=== PATIENT | female | born 1945 | race Caucasian/White ===

== ENCOUNTER 2018-08-29 09:47 | Inpatient (IN) | payer OTHER ==
[2018-08-29 11:49] LABS: BASO % 0.3 % (0-2.0); EOS % 0.7 % (0-4.5); HEMOGLOBIN 13.2 GM/dL (10.7-15.3); LYMPH % 28.7 % (8-40); MCH 35.6 pg (25.7-33.7); MCHC 35.7 g/dl (32.0-36.0); MEAN CELL VOLUME 99.8 fl (80-96); MONO % 5.3 % (3.8-10.2); PLATELET COUNT 142 K/MM3 (134-434); WHITE BLOOD COUNT 7.7 K/mm3 (4.0-10.0)
--- NOTE | 2018-08-29 12:10 | PDOC ---
History of Present Illness - General Chief Complaint: Headache Stated Complaint: HEADACHE Time Seen by Provider: 08/29/18 11:15 History Source: Patient Exam Limitations: No Limitations - History of Present Illness Initial Comments: 08/29/18 12:37 73 yo F with a past medical hx of HTN, hypothyroidism, HLD, vertigo, and preliminary diagnosis of parkinson's disease presents to the emergency department with her son for increased severity of AMS which has been ongoing for 2 weeks. Per the son, she has had worsening of mental status since last week when she was placed off her medication pimavanserin. She states she has been seeing family members walking through her house despite them not physically being there. Per the son, she has become more paranoid and agitated. She has been getting names mixed with the siblings. She has been seen by Dr. Conde for the last 3 weeks for Parkinsons work up due to unsteady gait, increased tremors, and hallucinations. Denies recent falls or sick contacts. Endorses urinary urgency. Denies the following: headaches, fever/chills, FND, nausea/vomiting, chest pain, SOB, abdominal pain, dysuria, hematuria, diarrhea, hematochezia, and melena. Pmhx: Refer to above Shx: hysterectomy 1970s Meds: metoprolol, levothyroxine, nifedipine, depakote, losartan, pimavanserin, Allergies: NKDA Social: Denies tobacco, alcohol, and substance abuse. Past History - Past Medical History Allergies/Adverse Reactions: Allergies Allergy/AdvReac Type Severity Reaction Status Date / Time No Known Allergies Allergy Verified 08/29/18 10:05 Home Medications: Ambulatory Orders Atorvastatin Ca [Lipitor] 40 mg PO HS 08/29/18 Diazepam [Valium] 2 mg PO DAILY 08/29/18 Divalproex [Depakote -] 500 mg PO HS 08/29/18 Etodolac [Etodolac ER] 400 mg PO DAILY 08/29/18 Levothyroxine Sodium [Levoxyl] 88 mcg PO DAILY 08/29/18 Losartan Potassium 25 mg PO DAILY 08/29/18 Metoprolol Succinate 100 mg PO DAILY 08/29/18 Nifedipine ER [Procardia Xl -] 30 mg PO DAILY 08/29/18 Pimavanserin Tartrate [Nuplazid] 34 mg PO DAILY 08/29/18 COPD: No HTN: Yes Hypercholesterolemia: Yes Psychiatric Problems: Yes (DEPRESSION) Seizures: Yes Other medical history: PARKINSON - Immunization History Immunization Up to Date: Yes - Suicide/Smoking/Psychosocial Hx Smoking History: Never smoked Have you smoked in the past 12 months: No Information on smoking cessation initiated: No Hx Alcohol Use: No Drug/Substance Use Hx: No Substance Use Type: None Review of Systems - Review of Systems Comments:: Refer to HPI *Physical Exam - Vital Signs Last Vital Signs Temp Pulse Resp BP Pulse Ox 98.0 F 67 16 155/59 L 97 08/29/18 09:58 08/29/18 09:58 08/29/18 09:58 08/29/18 09:58 08/29/18 09:58 - Physical Exam General Appearance: Yes: Nourished, Appropriately Dressed. No: Apparent Distress, Disheveled, Alcohol on Breath, Intoxicated HEENT: positive: EOMI, ASHLEY, Normal ENT Inspection, Normal Voice, Symmetrical, TMs Normal, Pharynx Normal, Hearing Grossly Normal. negative: Scleral Icterus ( R), Scleral Icterus (L), Muffled/Hoarse voice, Pharyngeal Erythema, Tonsillar Erythema, Excessive drooling Neck: positive: Trachea midline. negative: Tender, Decreased range of motion, Lymphadenopathy (R), Lymphadenopathy (L), Tender lateral, Tender midline Respiratory/Chest: positive: Lungs Clear, Normal Breath Sounds. negative: Chest Tender, Respiratory Distress, Accessory Muscle Use Cardiovascular: positive: Regular Rhythm, Regular Rate, S1, S2. negative: Systolic Murmur Gastrointestinal/Abdominal: positive: Normal Bowel Sounds, Flat, Soft. negative : Tender, Organomegaly, Pulsatile Mass, Protuberent, Distended Lymphatic: negative: Adenopathy Musculoskeletal: positive: Normal Inspection. negative: CVA Tenderness, Decreased Range of Motion, Vertebral Tenderness Extremity: positive: Normal Capillary Refill, Normal Inspection, Normal Range of Motion. negative: Tender, Swelling, Calf Tenderness Integumentary: positive: Normal Color, Dry, Warm. negative: Erythema, Petechiae , Swelling Neurologic: positive: security alarm technician II-XII NML intact, Alert, Normal Response, Motor Strength 5/5, Finger to Nose. negative: Fully Oriented (oriented to self and place. incorrect date), Normal Mood/Affect, Facial Droop, Sensory Deficit Heart Score/ECG Review - ECG Intrepretation Comment:: 08/30/18 02:04 ventricular rate is 57 bpm, pr is 190 ms, QRS duration is 86 ms, QTc is 414 ms. sinus bradycardia without st elevations or depressions noted. ED Treatment Course - LABORATORY CBC & Chemistry Diagram: 08/29/18 11:25 08/29/18 11:25 - ADDITIONAL ORDERS Additional order review: Laboratory Results 08/29/18 11:21 Ammonia 23.30 08/29/18 11:25 RBC 3.70 MCV 99.8 H MCHC 35.7 RDW 13.0 MPV 10.0 Neutrophils % 65.0 Lymphocytes % 28.7 Monocytes % 5.3 Eosinophils % 0.7 Basophils % 0.3 Medical Decision Making - Medical Decision Making 73 yo F with a past medical hx of HTN, hypothyroidism, HLD, vertigo, and preliminary diagnosis of parkinson's disease presents to the emergency department with her son for increased severity of AMS which has been ongoing for 2 weeks. Initial vitals: Initial Vital Signs Temp Pulse Resp BP Pulse Ox 98.0 F 67 16 155/59 L 97 08/29/18 09:58 08/29/18 09:58 08/29/18 09:58 08/29/18 09:58 08/29/18 09:58 Work up: ams in setting of worsening parkinsons? vs delirium (infectious vs metabolic vs intracranial pathology). will order cbc to rule out infectious etiology, cmp to rule out metabolic disturbance, troponins and ekg for cardiac hx and questionable ataxia via son (not observed on physical exam), UA and urine culture to assess infectious etiology. head ct to rule out intracranial processes and cxr to rule out infectious etiology (PNA). TSH was added due to hypothyroidism hx Laboratory Tests 08/29/18 08/29/18 08/29/18 11:21 11:25 11:25 WBC 7.7 RBC 3.70 Hgb 13.2 Hct 37.0 MCV 99.8 H MCH 35.6 H MCHC 35.7 RDW 13.0 Plt Count 142 MPV 10.0 Absolute Neuts (auto) 5.0 Neutrophils % 65.0 Lymphocytes % 28.7 Monocytes % 5.3 Eosinophils % 0.7 Basophils % 0.3 Nucleated RBC % 0 Sodium 141 Potassium 3.8 Chloride 106 Carbon Dioxide 28 Anion Gap 8 BUN 23 H Creatinine 0.7 Creat Clearance w eGFR > 60 Random Glucose 137 H Calcium 8.5 Total Bilirubin 0.4 AST 11 L ALT 16 Alkaline Phosphatase 58 Ammonia 23.30 Creatine Kinase 35 Troponin I < 0.02 Total Protein 6.4 Albumin 3.4 TSH 2.73 Urine Color Urine Appearance Urine pH Ur Specific [place] Urine Protein Urine Glucose (UA) Urine Ketones Urine Blood Urine Nitrite Urine Bilirubin Urine Urobilinogen Ur Leukocyte Esterase Urine WBC (Auto) Urine RBC (Auto) Ur Epithelial Cells Urine Mucus 08/29/18 11:50 WBC RBC Hgb Hct MCV MCH MCHC RDW Plt Count MPV Absolute Neuts (auto) Neutrophils % Lymphocytes % Monocytes % Eosinophils % Basophils % Nucleated RBC % Sodium Potassium Chloride Carbon Dioxide Anion Gap BUN Creatinine Creat Clearance w eGFR Random Glucose Calcium Total Bilirubin AST ALT Alkaline Phosphatase Ammonia Creatine Kinase Troponin I Total Protein Albumin TSH Urine Color Marjorie Urine Appearance Slcloudy Urine pH 5.0 Ur Specific [place] 1.018 Urine Protein Negative Urine Glucose (UA) Negative Urine Ketones Negative Urine Blood Negative Urine Nitrite Negative Urine Bilirubin Negative Urine Urobilinogen 2.0 H Ur Leukocyte Esterase 1+ H Urine WBC (Auto) 23 Urine RBC (Auto) 3 Ur Epithelial Cells Rare Urine Mucus Moderate Patient's labs show a positive leuk esterase consistent with a UTI. in addition , troponins were negative and the EKG did not show signs consistent to STEMI. the rest of the labs were within normal limits. the patient was reassessed after the labs. she continued to remain asymptomatic. I spoke to the son of the patient at length about housing arrangements for the patient. Per the son, they are unable to care for her in their current living arrangement. they feel she is unsafe to return to her home where she lives alone because they suspect she doesnt feed herself and gets confused. he expressed wishes for her to be placed in a temporary shelter until arrangements can be made. 08/29/18 14:[address] conde about patient's dispo. he states to treat the uti and have her follow up with his office sooner. Dr. Almodovar admitted the patient for placement workup and workup of AMS. she was given ceftriaxone in the department. Dispo: Admit *DC/Admit/Observation/Transfer Diagnosis at time of Disposition: Altered mental status Qualifiers: Altered mental status type: unspecified Qualified Code(s): R41.82 - Altered mental status, unspecified Urinary tract infection Qualifiers: Urinary tract infection type: site unspecified Hematuria presence: without hematuria Qualified Code(s): N39.0 - Urinary tract infection, site not specified - Referrals - Patient Instructions - Post Discharge Activity
[2018-08-29 12:21] LABS: ALBUMIN 3.4 g/dl (3.4-5.0); ALK PHOS 58 U/L (45-117); ANION GAP 8 MMOL/L (8-16); BILIRUBIN,TOTAL 0.4 mg/dL (0.2-1); BLOOD UREA NITROGEN 23 mg/dL (7-18); CALCIUM 8.5 mg/dL (8.5-10.1); CHLORIDE 106 mmol/L (98-107); CO2 28 mmol/L (21-32); CREATININE 0.7 mg/dL (0.55-1.3); GLUCOSE,RANDOM 137 mg/dL (74-106); POTASSIUM 3.8 mmol/L (3.5-5.1); SGOT/AST 11 U/L (15-37); SGPT/ALT 16 U/L (13-61); SODIUM 141 mmol/L (136-145); TOT PROT 6.4 g/dl (6.4-8.2)
[2018-08-29 12:24] LABS: URINE APPEARANCE SLCLOUDY; URINE BILIRUBIN NEGATIVE (<2.0 mg/dL); URINE COLOR AMBER; URINE GLUCOSE (UA) NEGATIVE (NEGATIVE); URINE KETONE NEGATIVE (NEGATIVE); URINE LEUK ESTERASE 1+ (NEGATIVE); URINE NITRITE NEGATIVE (NEGATIVE); URINE PROTEIN NEGATIVE (NEGATIVE)
[2018-08-29 12:28] LABS: EPI CELLS RARE /HPF (FEW); URINE MUCUS MODERATE
--- NOTE | 2018-08-29 14:36 | PDOC ---
Attending Attestation - Resident Resident Name: Sarthak Guzman - ED Attending Attestation I have performed the following: I have examined & evaluated the patient, The case was reviewed & discussed with the resident, I agree w/resident's findings & plan, Exceptions are as noted - HPI HPI: 08/29/18 14:27 The patient is a 73 year old female, with a past medical history of HTN, HLD, hypothyroidism, vertigo, and recent diagnosis of Parkinsons (recently came off of Nuplazid), who presents to the emergency department with altered mental status. As per patients son, the patient has been experiencing worsening hallucinations, paranoia, and insomnia. Patients son notes her symptoms have been ongoing for a few weeks and worsening over the past few days. Pt endorses urinary frequency but denies any recent fever, chills, nausea, vomiting , diarrhea, constipation, chest pain, or shortness of breath. Allergies: NKDA Past surgical history:Hysterectomy () Social history: Nonsmoker. Denies EtOH use and recreational drug use. Primary Care Physician: Dr. Almodovar - Physicial Exam PE: 08/29/18 14:36 "GENERAL: Awake, alert, in no acute distress. HEAD: No signs of trauma EYES: PERRLA, EOMI, sclera anicteric, conjunctiva clear ENT: Auricles normal inspection, hearing grossly normal, nares patent, oropharynx clear without exudates. Moist mucosa NECK: Nontender, no stepoffs, Normal ROM, supple, no lymphadenopathy, JVD, or masses LUNGS: Breath sounds equal, clear to auscultation bilaterally. No wheezes, and no crackles HEART: Regular rate and rhythm, normal S1 and S2, no murmurs, rubs or gallops ABDOMEN: Soft, nontender, normoactive bowel sounds. No guarding, no rebound. No masses EXTREMITIES: Normal range of motion, no edema. No clubbing or cyanosis. No cords, erythema, or tenderness NEUROLOGICAL: Cranial nerves II through XII intact. 5/5 strength and sensation in all extremities, Normal speech, normal gait, normal cerebellar function SKIN: Warm, Dry, normal turgor, no rashes or lesions noted. - Medical Decision Making 08/29/18 14:38 73 F with worsening hallucinations, confusion, agitation, and insomnia. Will evaluate for organic cause, such as infectious or metabolic process. Also consider intracranial pathology, though pt has normal neuro exam. - Labs - UA, CXR - CT head - Discuss with Dr. Conde
[2018-08-29] MEDS ORDERED: CEFTRIAXONE 1,000 MG in DEXTROSE 5%-WATER - 50 ML IVPB ONE (15:42)
[2018-08-29] MEDS ORDERED: CEFTRIAXONE 1 GM/50 ML BAG ONE (15:46)
[2018-08-29] MEDS ORDERED: DOCUSATE SODIUM 100 MG CAPSULE (FP) PO PRN (17:27)
[2018-08-29] MEDS: diazePAM 2 MG TABLET PO SCH (18:23)
[2018-08-29 21:22] VITALS: BMI 24.6
[2018-08-29] MEDS: ATORVASTATIN CA 40 MG TABLET (FP) PO SCH (21:48)
[2018-08-29] MEDS: DIVALPROEX SODIUM 500 MG TABLET E.C. PO SCH (23:11)
[2018-08-30] MEDS: LEVOTHYROXINE NA 88 MCG TABLET (FP) PO SCH (06:15)
[2018-08-30 07:00] LABS: HEMATOCRIT 38.9 % (32.4-45.2); MCH 33.8 pg (25.7-33.7); MCHC 33.5 g/dl (32.0-36.0); MEAN CELL VOLUME 101.1 fl (80-96); MEAN PLT VOLUME 9.8 fl (7.5-11.1); PLATELET COUNT 129 K/MM3 (134-434); RBC 3.84 M/mm3 (3.60-5.2); WHITE BLOOD COUNT 7.6 K/mm3 (4.0-10.0)
[2018-08-30 08:05] LABS: ALBUMIN 3.3 g/dl (3.4-5.0); ALK PHOS 58 U/L (45-117); ANION GAP 8 MMOL/L (8-16); BILIRUBIN,TOTAL 0.4 mg/dL (0.2-1); BLOOD UREA NITROGEN 28 mg/dL (7-18); CALCIUM 8.2 mg/dL (8.5-10.1); CHLORIDE 107 mmol/L (98-107); CO2 27 mmol/L (21-32); CREATININE 0.8 mg/dL (0.55-1.3); GLUCOSE,RANDOM 127 mg/dL (74-106); POTASSIUM 3.7 mmol/L (3.5-5.1); SGOT/AST 11 U/L (15-37); SGPT/ALT 18 U/L (13-61); SODIUM 142 mmol/L (136-145); TOT PROT 6.1 g/dl (6.4-8.2)
[2018-08-30] MEDS: NIFEdipine E.R. 30 MG TABLET (FP) PO SCH (09:40)
[2018-08-30] MEDS: LOSARTAN POTASSIUM 25 MG TABLET PO SCH (09:41)
[2018-08-30] MEDS: diazePAM 2 MG TABLET PO SCH (09:42)
[2018-08-30] MEDS ORDERED: PATIENT'S OWN MEDICATION (NON-FORMULARY) (Pimavanserin Tartrate [Nuplazid] 34 MG) PO SCH (10:00)
--- NOTE | 2018-08-30 12:36 | EKG ---
Test Reason : Blood Pressure : / mmHG Vent. Rate : 057 BPM Atrial Rate : 057 BPM P-R Int : 190 ms QRS Dur : 086 ms QT Int : 426 ms P-R-T Axes : 054 028 070 degrees QTc Int : 414 ms SINUS BRADYCARDIA OTHERWISE NORMAL ECG Confirmed by MD CINDY, ROBSON ([id number]) on 08/30/2018 12:35:53 PM Referred By: Confirmed By:ROBSON WHITE MD
--- NOTE | 2018-08-30 13:00 | PN ---
Progress Note (short form) - Note Progress Note: ID Consult dictated UTI ? Toxic metabolic encephalopathy Parkinsonism Await c/s Empiric ceftriaxone
[2018-08-30] MEDS ORDERED: cefTRIAXone SODIUM 1 GM VIAL ONE (14:14)
[2018-08-30] MEDS ORDERED: DEXTROSE 5%-WATER - 50 ML IVPB ONE (14:14)
[2018-08-30] MEDS: CEFTRIAXONE 1 GM in DEXTROSE 5%-WATER - 50 ML IVPB SCH (14:41)
--- NOTE | 2018-08-30 19:03 | CONS ---
DATE OF CONSULTATION: DATE OF DICTATION: 08/30/2018 INFECTIOUS DISEASE CONSULTATION HISTORY OF PRESENT ILLNESS: The patient is a 73-year-old female with a history of Parkinsonism evaluated for urinary tract infection. The patient was brought to the hospital by family after she was noted to have worsening mental status over the past 2 weeks. According to the notes, she had increased lethargy and confusion as well as agitation, paranoia, and visual hallucinations. In addition, she had a worsening unsteady gait. She was brought to the hospital where urinalysis showed pyuria, urine culture growing mixed organisms. She is awake and responsive. She appears calm. She does report urinary frequency and urgency. Denies dysuria or hematuria. No complaints of suprapubic or flank pain. PAST MEDICAL HISTORY: Positive for parkinsonism, hyperlipidemia, hypothyroidism, hypertension. PAST SURGICAL HISTORY: Status post hysterectomy. ALLERGIES: No known allergies. MEDICATION: Metoprolol, levothyroxine, nifedipine, Depakote, losartan. SOCIAL HISTORY: Lives at home with family members. Nonsmoker. Nondrinker. SYSTEMS REVIEW: Neurologic: Positive for parkinsonism. Cardiac: Negative for chest pain or palpitations. Respiratory: Negative for cough or sputum production. Gastrointestinal: Negative vomiting or diarrhea. Genitourinary: As per HPI. LABORATORY: White count 7.6, hematocrit 38.9, platelet count 129. Creatinine 0.8. Urinalysis 23 white cells. Chest x-ray negative. PHYSICAL EXAMINATION: General: On exam, she is awake, supine in bed, she appears weak. Vital signs: Temperature 98, blood pressure 129/59, pulse 62 regular, respirations 20 per minute. HEENT: Sclerae anicteric. Cardiovascular: Heart sounds S1, S2. Lungs: Clear bilaterally. Abdomen: Soft, no suprapubic or flank tenderness. Extremities: Positive for edema. IMPRESSION: 1. Urinary tract infection. 2. Possible toxic metabolic encephalopathy secondary to urinary tract infection. 3. Parkinsonism with exacerbation. Await cultures. Empiric antibiotic coverage with ceftriaxone. Case discussed with patient's son at the bedside. Will follow. Thank you for the kind referral. IRISH IRAHETA M.D. [id number]
--- NOTE | 2018-08-30 20:58 | HP ---
Admitting History and Physical - Admission History of Present Illness: 73 y/o female PMH Hypothyroid / HTN / HLD/ with progressive dementia. Brought to ER with behavioral changes / dificult to control. unable to obtain hx from patient / she is confused and anxious History Source: Family Member, Medical Record Limitations to Obtaining History: Dementia, Uncooperative - Past Medical History HOME CARE ASSOCIATE: Yes: Dementia ...: No - Smoking History Smoking history: Never smoked Have you smoked in the past 12 months: No If you are a former smoker, when did you quit?: 20 years ago - Alcohol/Substance Use Hx Alcohol Use: No - Social History Usual Living Arrangement: Yes: With Child ADL: Support Services History of Recent Travel: No Home Medications - Allergies Allergies/Adverse Reactions: Allergies Allergy/AdvReac Type Severity Reaction Status Date / Time codeine Allergy Verified 08/30/18 18:49 Penicillins Allergy Verified 08/30/18 18:49 - Home Medications Home Medications: Ambulatory Orders Atorvastatin Ca [Lipitor] 40 mg PO HS 08/29/18 Diazepam [Valium] 2 mg PO DAILY 08/29/18 Divalproex [Depakote -] 500 mg PO HS 08/29/18 Etodolac [Etodolac ER] 400 mg PO DAILY 08/29/18 Levothyroxine Sodium [Levoxyl] 88 mcg PO DAILY 08/29/18 Losartan Potassium 25 mg PO DAILY 08/29/18 Metoprolol Succinate 100 mg PO DAILY 08/29/18 Nifedipine ER [Procardia XL -] 30 mg PO DAILY 08/29/18 Pimavanserin Tartrate [Nuplazid] 34 mg PO DAILY 08/29/18 Cephalexin Monohydrate [Keflex -] 500 mg PO BID capsule 09/02/18 Divalproex [Depakote -] 500 mg PO HS tablet.ec 09/02/18 Docusate Sodium [Colace -] 100 mg PO Q12H PRN capsule 09/02/18 Melatonin 10 mg PO HS PRN tab 09/02/18 Quetiapine Fumarate [Seroquel -] 25 mg PO HS tablet 09/02/18 Review of Systems Unable to obtain ROS, reason: dementia Findings/Remarks: ROS per family patient with increase agitations / confusion poor impulse control / further decline in cognition in recent weeks - Review of Systems Constitutional: denies: Chills, Fever, Night Sweats HENT: denies: Difficult Swallowing, Mouth Swelling, Nasal Congestion Neck: denies: Decreased ROM, Lumps, Stiffness Cardiovascular: denies: Chest Pain, Palpitations, Shortness of Breath Respiratory: denies: Cough Gastrointestinal: denies: Abdominal Pain Musculoskeletal: denies: Back Pain, Joint Swelling Neurological: reports: Confusion (increased confusion), Pre-Existing Deficit, Unsteady Gait Psychiatric: reports: Anxiety, Paranoia Physical Examination Vital Signs: Vital Signs Temperature 98.0 F 08/30/18 16:53 Pulse Rate 61 08/30/18 16:53 Respiratory Rate 18 08/30/18 16:53 Blood Pressure 143/58 L 08/30/18 16:53 O2 Sat by Pulse Oximetry (%) 96 08/30/18 09:00 Constitutional: Yes: Well Nourished, No Distress, Anxious Eyes: Yes: Conjunctiva Clear, EOM Intact HENT: Yes: Atraumatic, Normocephalic Neck: Yes: Supple, Trachea Midline Cardiovascular: Yes: Regular Rate and Rhythm Respiratory: Yes: Regular, CTA Bilaterally Gastrointestinal: Yes: Normal Bowel Sounds, Soft ...Rectal Exam: Yes: Deferred Renal/: Yes: WNL Breast(s): Yes: WNL Musculoskeletal: Yes: WNL Extremities: Yes: WNL Edema: No Peripheral Pulses WNL: Yes Integumentary: Yes: WNL Neurological: Yes: Alert, Confusion, Pre-Existing Deficit, Unsteady Gait, Other (paranoid) Psychiatric: Yes: Alert, Agitated Labs: CBC, BMP 08/30/18 06:00 08/30/18 06:00 Problem List - Problems (1) Restlessness and agitation Code(s): R45.1 - RESTLESSNESS AND AGITATION (2) Altered mental status Code(s): R41.82 - ALTERED MENTAL STATUS, UNSPECIFIED Qualifiers: Altered mental status type: unspecified Qualified Code(s): R41.82 - Altered mental status, unspecified (3) Urinary tract infection Code(s): N39.0 - URINARY TRACT INFECTION, SITE NOT SPECIFIED Qualifiers: Urinary tract infection type: site unspecified Hematuria presence: without hematuria Qualified Code(s): N39.0 - Urinary tract infection, site not specified (4) HTN (hypertension) Code(s): I10 - ESSENTIAL (PRIMARY) HYPERTENSION (5) Hypothyroid Code(s): E03.9 - HYPOTHYROIDISM, UNSPECIFIED (6) HLD (hyperlipidemia) Code(s): E78.5 - HYPERLIPIDEMIA, UNSPECIFIED
[2018-08-30] MEDS: QUEtiapine FUMARATE 25 MG TABLET (FP) PO SCH (22:05)
[2018-08-30] MEDS: ATORVASTATIN CA 40 MG TABLET (FP) PO SCH (22:05)
[2018-08-30] MEDS: DIVALPROEX SODIUM 500 MG TABLET E.C. PO SCH (22:24)
--- NOTE | 2018-08-30 23:04 | CONSULT ---
Consult - text type - Consultation Consultation Note: NEUROLOGY CONSULTATION is greatly appreciated: Events reviewed and discussed with RN. This 73 yo RH div woman lives alone. PMH sig for Chol, HTN, Hypothyroidism s/p thyroidectomy. Maintained on: Atorvastatin; Diazepam 2 mg PO qd; Depakote 500 mg HS; Levothyroxine; Losartan; Metoprolol 100 mg; Nifedipine ER 30 mg. Chronic headaches c/w migraines and episodic vertigo. Seen once by me on 08/09/18 after 6 mos of Visual hallucinations (mostly of people in her bedroom at night), mild OMS and early Parkinsonian features. Started on Depakote for migraine prophylaxis and Nuplazid for Parkinson's disease psychosis. Family was tole it takes 4-6 weeks for this medicine to work. Now admitted for confusion. MRI of brain was done last week and CT today (both reviewed): which show moderate atrophy and microvascular changes. CYH=115; TSH=2.73 and urinary WBC=23 Tonight, RN's find patient to be confused but she denies recent headaches or visual hallucinations for at least 2 days. HUMAIRA: No head trauma. No bruits. Cor reg. NEURO: Awake, alert, cooperative. O x [facility]. Nove 2015, , 18. TRUMP. Poor reversals and recall (0 of 3 @ 3 mins). No frontal release finds. Speech sl hypophonic but fluent. Sl masked facies. Min Bradykinesia. Cogwheeling L>R. Normal strength and reflexes. No FTN dystaxia Normal vibration in feet. Sl. shuffling gait IMP: Mild-moderate B/L cerebral dysfunction Parkinsonism with PD-related Psychosis (Cannot exclude Lewy Body Dementia ). Hallucinations may be better if patient's history is reliable. Migraine headaches- improved on Depakote. Possible Toxic-metabolic Encephalopathy SUGGEST: Continue Depakote 500 mg qd and Nuplazid 34 mg q AM Check B12 levels Continue valium 2 mg q HS to avoid withdrawal of chronic benzodiazepine Rx Agree with quetiapine 25 mg PO TID, PRN agitation. Please Rx UTI. health services coordinator, please. Thank you very much, Song Conde MD
[2018-08-30] MEDS: MELATONIN 5 MG TABLETS PO PRN (23:28)
[2018-08-31] MEDS: LEVOTHYROXINE NA 88 MCG TABLET (FP) PO SCH (06:02)
[2018-08-31] MEDS ORDERED: PT OWN MED DRAWER 7, Y5N ONE ×2 (09:17→22:34)
[2018-08-31] MEDS ORDERED: cefTRIAXone SODIUM 1 GM VIAL ONE (09:18)
[2018-08-31] MEDS ORDERED: DEXTROSE 5%-WATER - 50 ML IVPB ONE (09:18)
[2018-08-31] MEDS: NIFEdipine E.R. 30 MG TABLET (FP) PO SCH (09:31)
[2018-08-31] MEDS: LOSARTAN POTASSIUM 25 MG TABLET PO SCH (09:31)
[2018-08-31] MEDS: CEFTRIAXONE 1 GM in DEXTROSE 5%-WATER - 50 ML IVPB SCH (09:31)
[2018-08-31] MEDS: diazePAM 2 MG TABLET PO SCH (09:38)
--- NOTE | 2018-08-31 12:25 | PN ---
Progress Note (short form) - Note Progress Note: patient seen and examined in her room agitated - wants to get up and go home unsteady once standing -- assist of 2 to avoid falling need constant guidance for safety Full assistance to ambulate to bathroom no recall / easily confuse / can only follow simple commands Vital Signs Period Temp Pulse Resp BP Sys/Hu Pulse Ox Last 24 Hr 97.3 F-98.3 F 61-78 18-20 103-143/58-77 97-97 neck supple heart S1/S2 lung clear bilat abd soft non tendere ext no edema / FROM / difficult exam as patient uncooperative - unable to follow commands / unable to focus Microbiology 08/29/18 11:50 Urine - Urine - Catheterized Urine Culture - Preliminary Escherichia Coli Lactose Fermenting Neg Bacilli Active Medications Atorvastatin Calcium (Lipitor -) 40 mg PO HS [facility] Last Admin: 08/30/18 22:05 Dose: Not Given Diazepam (Valium -) 2 mg PO DAILY [facility] Last Admin: 08/31/18 09:38 Dose: Not Given Divalproex Sodium (Depakote -) 500 mg PO HS [facility] Last Admin: 08/30/18 22:24 Dose: 500 mg Docusate Sodium (Colace -) 100 mg PO Q12H PRN PRN Reason: CONSTIPATION Ceftriaxone Sodium 1 gm/ (Dextrose) 50 mls @ 200 mls/hr IVPB DAILY [facility]; Protocol Last Admin: 08/31/18 09:31 Dose: 200 mls/hr Levothyroxine Sodium (Synthroid -) 88 mcg PO DAILY@0700 [facility] Last Admin: 08/31/18 06:02 Dose: 88 mcg Losartan Potassium (Cozaar -) 25 mg PO DAILY [facility] Last Admin: 08/31/18 09:31 Dose: 25 mg Melatonin (Melatonin) 10 mg PO HS PRN PRN Reason: INSOMNIA Last Admin: 08/30/18 23:28 Dose: 10 mg Metoprolol Succinate (Toprol Xl -) 100 mg PO DAILY [facility] Last Admin: 08/31/18 09:31 Dose: 100 mg Nifedipine (Procardia Xl -) 30 mg PO DAILY [facility] Last Admin: 08/31/18 09:31 Dose: 30 mg Non-Formulary Medication (Pimavanserin Tartrate [Nuplazid]) 34 mg PO DAILY [facility] Quetiapine Fumarate (Seroquel -) 25 mg PO HS [facility] Last Admin: 08/30/18 22:05 Dose: 25 mg # metabolic encephalopathy setting of UTI full assist for all ADLs need guidance although physically able to dress and toilet self. baseline dementia with behavior changes # HTN continue current medication # parkinsons per neuro psychosis will adjust medications to assist patients' safety Problem List - Problems (1) Restlessness and agitation Code(s): R45.1 - RESTLESSNESS AND AGITATION (2) Altered mental status Code(s): R41.82 - ALTERED MENTAL STATUS, UNSPECIFIED Qualifiers: Altered mental status type: unspecified Qualified Code(s): R41.82 - Altered mental status, unspecified (3) Urinary tract infection Code(s): N39.0 - URINARY TRACT INFECTION, SITE NOT SPECIFIED Qualifiers: Urinary tract infection type: site unspecified Hematuria presence: without hematuria Qualified Code(s): N39.0 - Urinary tract infection, site not specified
--- NOTE | 2018-08-31 13:20 | PN ---
Progress Note, Physician History of Present Illness: Ambulatory Reports urinary urgency Denies dysuria No c/o fever/ chills Urine c/s E coli Tolerated cephalosporin - Current Medication List Current Medications: Active Medications Atorvastatin Calcium (Lipitor -) 40 mg PO HS [facility] Last Admin: 08/30/18 22:05 Dose: Not Given Diazepam (Valium -) 2 mg PO DAILY [facility] Last Admin: 08/31/18 09:38 Dose: Not Given Divalproex Sodium (Depakote -) 500 mg PO HS [facility] Last Admin: 08/30/18 22:24 Dose: 500 mg Docusate Sodium (Colace -) 100 mg PO Q12H PRN PRN Reason: CONSTIPATION Ceftriaxone Sodium 1 gm/ (Dextrose) 50 mls @ 200 mls/hr IVPB DAILY [facility]; Protocol Last Admin: 08/31/18 09:31 Dose: 200 mls/hr Levothyroxine Sodium (Synthroid -) 88 mcg PO DAILY@0700 [facility] Last Admin: 08/31/18 06:02 Dose: 88 mcg Losartan Potassium (Cozaar -) 25 mg PO DAILY [facility] Last Admin: 08/31/18 09:31 Dose: 25 mg Melatonin (Melatonin) 10 mg PO HS PRN PRN Reason: INSOMNIA Last Admin: 08/30/18 23:28 Dose: 10 mg Metoprolol Succinate (Toprol Xl -) 100 mg PO DAILY [facility] Last Admin: 08/31/18 09:31 Dose: 100 mg Nifedipine (Procardia Xl -) 30 mg PO DAILY [facility] Last Admin: 08/31/18 09:31 Dose: 30 mg Non-Formulary Medication (Pimavanserin Tartrate [Nuplazid]) 34 mg PO DAILY [facility] Quetiapine Fumarate (Seroquel -) 25 mg PO HS [facility] Last Admin: 08/30/18 22:05 Dose: 25 mg - Objective Vital Signs: Vital Signs Temperature 97.4 F L 08/31/18 10:12 Pulse Rate 66 08/31/18 10:12 Respiratory Rate 20 08/31/18 10:12 Blood Pressure 103/72 08/31/18 10:12 O2 Sat by Pulse Oximetry (%) 97 08/31/18 09:00 Constitutional: Yes: No Distress Eyes: Yes: Conjunctiva Clear Cardiovascular: Yes: Regular Rate and Rhythm, S1, S2 Respiratory: Yes: CTA Bilaterally Gastrointestinal: Yes: Normal Bowel Sounds, Soft. No: Tenderness Edema: No Labs: CBC, BMP 08/30/18 06:00 08/30/18 06:00 Assessment/Plan E coli UTI Exacerbation, Parkinsonism PCN allergy Substitute Keflex 500mg po bid x 7d
[2018-08-31] MEDS: DIVALPROEX SODIUM 500 MG TABLET E.C. PO SCH (22:38)
[2018-08-31] MEDS: QUEtiapine FUMARATE 25 MG TABLET (FP) PO SCH (22:39)
[2018-08-31] MEDS: ATORVASTATIN CA 40 MG TABLET (FP) PO SCH (22:39)
[2018-08-31] MEDS: CEPHALEXIN MONOHYDRATE 500 MG CAPSULE (UD) PO SCH (22:39)
[2018-08-31] MEDS: MELATONIN 5 MG TABLETS PO PRN (22:40)
[2018-09-01] MEDS: LEVOTHYROXINE NA 88 MCG TABLET (FP) PO SCH (06:42)
[2018-09-01] MEDS: LOSARTAN POTASSIUM 25 MG TABLET PO SCH (09:50)
[2018-09-01] MEDS: CEPHALEXIN MONOHYDRATE 500 MG CAPSULE (UD) PO SCH ×2 (09:50→23:10)
[2018-09-01] MEDS: diazePAM 2 MG TABLET PO SCH (09:50)
[2018-09-01] MEDS: NIFEdipine E.R. 30 MG TABLET (FP) PO SCH (09:50)
--- NOTE | 2018-09-01 12:11 | PN ---
Progress Note (short form) - Note Progress Note: 73 y/o female found lying in bed. Son present and stated unsure about mother's plan. Vital Signs Period Temp Pulse Resp BP Sys/Hu Pulse Ox Last 24 Hr 97.7 F-98.9 F 57-69 18-20 120-149/56-72 97 CBC, BMP 08/30/18 06:00 08/30/18 06:00 HEENT-NL Neck-Supple Lungs-CTAB Heart-S1/S2 Abd- Soft, nt Ext- No LE edema Active Medications Atorvastatin Calcium (Lipitor -) 40 mg PO HS [facility] Last Admin: 08/31/18 22:39 Dose: 40 mg Cephalexin HCl (Keflex -) 500 mg PO BID [facility] Last Admin: 09/01/18 09:50 Dose: 500 mg Diazepam (Valium -) 2 mg PO DAILY [facility] Last Admin: 09/01/18 09:50 Dose: 2 mg Divalproex Sodium (Depakote -) 500 mg PO HS [facility] Last Admin: 08/31/18 22:38 Dose: 500 mg Docusate Sodium (Colace -) 100 mg PO Q12H PRN PRN Reason: CONSTIPATION Last Admin: 08/31/18 22:39 Dose: 100 mg Levothyroxine Sodium (Synthroid -) 88 mcg PO DAILY@0700 [facility] Last Admin: 09/01/18 06:42 Dose: 88 mcg Losartan Potassium (Cozaar -) 25 mg PO DAILY [facility] Last Admin: 09/01/18 09:50 Dose: 25 mg Melatonin (Melatonin) 10 mg PO HS PRN PRN Reason: INSOMNIA Last Admin: 08/31/18 22:40 Dose: 10 mg Metoprolol Succinate (Toprol Xl -) 100 mg PO DAILY [facility] Last Admin: 09/01/18 09:50 Dose: 100 mg Nifedipine (Procardia Xl -) 30 mg PO DAILY [facility] Last Admin: 09/01/18 09:50 Dose: 30 mg Non-Formulary Medication (Pimavanserin Tartrate [Nuplazid]) 34 mg PO DAILY [facility] Quetiapine Fumarate (Seroquel -) 25 mg PO HS [facility] Last Admin: 08/31/18 22:39 Dose: 25 mg Assmt/Plan # metabolic encephalopathy Needs assistance with ADLs baseline dementia with behavior changes #UTI Continue Keflex #Insomnia Melatonin 10 mg q hs # HTN- BP stable continue current meds # parkinsons per neuro psychosis will adjust medications to assist patients' safety Case discussed at length with son. MRI/CT scan reviewed with medications. Advised [facility] facility while patient adjusting to medications/safety reasons. Problem List - Problems (1) Restlessness and agitation Code(s): R45.1 - RESTLESSNESS AND AGITATION (2) Altered mental status Code(s): R41.82 - ALTERED MENTAL STATUS, UNSPECIFIED Qualifiers: Altered mental status type: unspecified Qualified Code(s): R41.82 - Altered mental status, unspecified (3) Urinary tract infection Code(s): N39.0 - URINARY TRACT INFECTION, SITE NOT SPECIFIED Qualifiers: Urinary tract infection type: site unspecified Hematuria presence: without hematuria Qualified Code(s): N39.0 - Urinary tract infection, site not specified
[2018-09-01] MEDS: MELATONIN 5 MG TABLETS PO PRN (23:10)
[2018-09-01] MEDS: DIVALPROEX SODIUM 500 MG TABLET E.C. PO SCH (23:10)
[2018-09-01] MEDS: ATORVASTATIN CA 40 MG TABLET (FP) PO SCH (23:10)
[2018-09-01] MEDS: QUEtiapine FUMARATE 25 MG TABLET (FP) PO SCH (23:10)
[2018-09-02] MEDS: LEVOTHYROXINE NA 88 MCG TABLET (FP) PO SCH (06:31)
[2018-09-02 07:25] LABS: BASO % 0.7 % (0-2.0); EOS % 1.5 % (0-4.5); HEMATOCRIT 39.9 % (32.4-45.2); HEMOGLOBIN 13.5 GM/dL (10.7-15.3); LYMPH % 40.9 % (8-40); MCH 34.2 pg (25.7-33.7); MCHC 33.7 g/dl (32.0-36.0); MEAN CELL VOLUME 101.5 fl (80-96); MEAN PLT VOLUME 9.6 fl (7.5-11.1); MONO % 6.2 % (3.8-10.2); NEUT % 50.7 % (42.8-82.8); PLATELET COUNT 153 K/MM3 (134-434); RBC 3.93 M/mm3 (3.60-5.2); RDW 12.8 % (11.6-15.6); WHITE BLOOD COUNT 8.5 K/mm3 (4.0-10.0)
[2018-09-02 08:17] LABS: ALBUMIN 3.3 g/dl (3.4-5.0); ALK PHOS 57 U/L (45-117); ANION GAP 7 MMOL/L (8-16); BILIRUBIN,TOTAL 0.4 mg/dL (0.2-1); BLOOD UREA NITROGEN 19 mg/dL (7-18); CALCIUM 8.1 mg/dL (8.5-10.1); CHLORIDE 106 mmol/L (98-107); CO2 27 mmol/L (21-32); CREATININE 0.6 mg/dL (0.55-1.3); GLUCOSE,RANDOM 91 mg/dL (74-106); POTASSIUM 3.8 mmol/L (3.5-5.1); SGOT/AST 12 U/L (15-37); SGPT/ALT 21 U/L (13-61); SODIUM 140 mmol/L (136-145); TOT PROT 6.3 g/dl (6.4-8.2)
--- NOTE | 2018-09-02 09:33 | DS ---
Physical Examination Vital Signs: Vital Signs Temperature 97.5 F L 09/02/18 06:06 Pulse Rate 62 09/02/18 06:06 Respiratory Rate 20 09/02/18 06:06 Blood Pressure 148/78 09/02/18 06:06 O2 Sat by Pulse Oximetry (%) 98 09/01/18 21:00 Constitutional: Yes: Well Nourished Eyes: Yes: Conjunctiva Clear HENT: Yes: Atraumatic, Normocephalic Neck: Yes: Supple, Trachea Midline Cardiovascular: Yes: Regular Rate and Rhythm Respiratory: Yes: Regular, CTA Bilaterally Gastrointestinal: Yes: Normal Bowel Sounds, Soft ...Rectal Exam: Yes: Deferred Renal/: Yes: WNL Breast(s): Yes: WNL Musculoskeletal: Yes: WNL Extremities: Yes: WNL Edema: No Peripheral Pulses WNL: Yes Integumentary: Yes: WNL Neurological: Yes: WNL, Alert ...Motor Strength: WNL Psychiatric: Yes: Alert Labs: CBC, BMP 09/02/18 06:30 09/02/18 06:30 Discharge Summary Reason For Visit: AMS Current Active Problems Altered mental status (Acute) Restlessness and agitation (Acute) Urinary tract infection (Acute) Hospital Course: The patient is a 73 year old female, with a past medical history of HTN, HLD, hypothyroidism, vertigo, and recent diagnosis of Parkinsons (recently came off of Nuplazid) admitted for altered mental status. As per patients son, the patient was experiencing worsening hallucinations, paranoia, and insomnia. Plan to DC to snf facility. Condition: Fair - Instructions Referrals: Afia Almodovar MD [Primary Care Provider] - Disposition: SNF FACILITY - Home Medications Comprehensive Discharge Medication List: Ambulatory Orders Atorvastatin Ca [Lipitor] 40 mg PO HS 08/29/18 Diazepam [Valium] 2 mg PO DAILY 08/29/18 Divalproex [Depakote -] 500 mg PO HS 08/29/18 Etodolac [Etodolac ER] 400 mg PO DAILY 08/29/18 Levothyroxine Sodium [Levoxyl] 88 mcg PO DAILY 08/29/18 Losartan Potassium 25 mg PO DAILY 08/29/18 Metoprolol Succinate 100 mg PO DAILY 08/29/18 Nifedipine ER [Procardia Xl -] 30 mg PO DAILY 08/29/18 Pimavanserin Tartrate [Nuplazid] 34 mg PO DAILY 08/29/18
[2018-09-02] MEDS: CEPHALEXIN MONOHYDRATE 500 MG CAPSULE (UD) PO SCH ×2 (11:02→21:56)
[2018-09-02] MEDS: NIFEdipine E.R. 30 MG TABLET (FP) PO SCH (11:02)
[2018-09-02] MEDS: diazePAM 2 MG TABLET PO SCH (11:02)
[2018-09-02] MEDS: LOSARTAN POTASSIUM 25 MG TABLET PO SCH (11:02)
[2018-09-02] MEDS ORDERED: PT OWN MED DRAWER 7, Y5N ONE (20:19)
[2018-09-02] MEDS: DIVALPROEX SODIUM 500 MG TABLET E.C. PO SCH (21:56)
[2018-09-02] MEDS: MELATONIN 5 MG TABLETS PO PRN (21:56)
[2018-09-02] MEDS: ATORVASTATIN CA 40 MG TABLET (FP) PO SCH (21:56)
[2018-09-02] MEDS: QUEtiapine FUMARATE 25 MG TABLET (FP) PO SCH (21:56)
[2018-09-03] MEDS: LEVOTHYROXINE NA 88 MCG TABLET (FP) PO SCH (06:05)
[2018-09-03] MEDS: LOSARTAN POTASSIUM 25 MG TABLET PO SCH (10:19)
[2018-09-03] MEDS: diazePAM 2 MG TABLET PO SCH (10:20)
[2018-09-03] MEDS: CEPHALEXIN MONOHYDRATE 500 MG CAPSULE (UD) PO SCH ×2 (10:20→21:24)
[2018-09-03] MEDS: NIFEdipine E.R. 30 MG TABLET (FP) PO SCH (10:20)
[2018-09-03] MEDS ORDERED: PT OWN MED DRAWER 7, Y5N ONE ×2 (10:34→21:01)
--- NOTE | 2018-09-03 19:36 | PN ---
Progress Note (short form) - Note Progress Note: patient seen and examined in her room agitated - wants to get up and go home unsteady once standing -- assist of 2 to avoid falling need constant guidance for safety Full assistance to ambulate to bathroom no recall / easily confuse / can only follow simple commands Vital Signs Period Temp Pulse Resp BP Sys/Hu Pulse Ox Last 24 Hr 97.4 F-97.9 F 54-66 18-20 129-138/54-68 98 neck supple heart S1/S2 lung clear bilat abd soft non tendere ext no edema / FROM / difficult exam as patient uncooperative - unable to follow commands / unable to focus CBC, BMP 09/02/18 06:30 09/02/18 06:30 Microbiology 08/29/18 11:50 Urine - Urine - Catheterized Urine Culture - Final Escherichia Coli Active Medications Atorvastatin Calcium (Lipitor -) 40 mg PO HS [facility] Last Admin: 09/02/18 21:56 Dose: 40 mg Cephalexin HCl (Keflex -) 500 mg PO BID [facility] Last Admin: 09/03/18 10:20 Dose: 500 mg Diazepam (Valium -) 2 mg PO DAILY [facility] Last Admin: 09/03/18 10:20 Dose: 2 mg Divalproex Sodium (Depakote -) 500 mg PO HS [facility] Last Admin: 09/02/18 21:56 Dose: 500 mg Docusate Sodium (Colace -) 100 mg PO Q12H PRN PRN Reason: CONSTIPATION Last Admin: 08/31/18 22:39 Dose: 100 mg Levothyroxine Sodium (Synthroid -) 88 mcg PO DAILY@0700 [facility] Last Admin: 09/03/18 06:05 Dose: 88 mcg Losartan Potassium (Cozaar -) 25 mg PO DAILY [facility] Last Admin: 09/03/18 10:19 Dose: 25 mg Melatonin (Melatonin) 10 mg PO HS PRN PRN Reason: INSOMNIA Last Admin: 09/02/18 21:56 Dose: 10 mg Metoprolol Succinate (Toprol Xl -) 100 mg PO DAILY [facility] Last Admin: 09/03/18 10:20 Dose: 100 mg Nifedipine (Procardia Xl -) 30 mg PO DAILY [facility] Last Admin: 09/03/18 10:20 Dose: 30 mg Non-Formulary Medication (Pimavanserin Tartrate [Nuplazid]) 34 mg PO DAILY [facility] Quetiapine Fumarate (Seroquel -) 25 mg PO HS [facility] Last Admin: 09/02/18 21:56 Dose: 25 mg # metabolic encephalopathy setting of UTI full assist for all ADLs need guidance although physically able to dress and toilet self. baseline dementia with behavior changes # HTN continue current medication # parkinsons per neuro psychosis will adjust medications to assist patients' safety Problem List - Problems (1) Restlessness and agitation Code(s): R45.1 - RESTLESSNESS AND AGITATION (2) Altered mental status Code(s): R41.82 - ALTERED MENTAL STATUS, UNSPECIFIED Qualifiers: Altered mental status type: unspecified Qualified Code(s): R41.82 - Altered mental status, unspecified (3) Urinary tract infection Code(s): N39.0 - URINARY TRACT INFECTION, SITE NOT SPECIFIED Qualifiers: Urinary tract infection type: site unspecified Hematuria presence: without hematuria Qualified Code(s): N39.0 - Urinary tract infection, site not specified
[2018-09-03] MEDS: ATORVASTATIN CA 40 MG TABLET (FP) PO SCH (21:24)
[2018-09-03] MEDS: DIVALPROEX SODIUM 500 MG TABLET E.C. PO SCH (21:25)
[2018-09-03] MEDS: QUEtiapine FUMARATE 25 MG TABLET (FP) PO SCH (21:25)
[2018-09-03] MEDS: MELATONIN 5 MG TABLETS PO PRN (21:25)
[2018-09-04] MEDS: LEVOTHYROXINE NA 88 MCG TABLET (FP) PO SCH (06:10)
[2018-09-04] MEDS: LOSARTAN POTASSIUM 25 MG TABLET PO SCH (10:09)
[2018-09-04] MEDS: CEPHALEXIN MONOHYDRATE 500 MG CAPSULE (UD) PO SCH ×2 (10:09→20:59)
[2018-09-04] MEDS: diazePAM 2 MG TABLET PO SCH (10:09)
[2018-09-04] MEDS: NIFEdipine E.R. 30 MG TABLET (FP) PO SCH (10:09)
--- NOTE | 2018-09-04 10:48 | PN ---
Progress Note (short form) - Note Progress Note: patient seen and examined in her room less anxious confused / verbal answers inappropriate can only follow simple commands Vital Signs Period Temp Pulse Resp BP Sys/Hu Pulse Ox Last 24 Hr 97.5 F-98.1 F 58-66 20-20 129-149/60-75 98 cooperative with exam neck supple heart S1/S2 lung clear bilat abd soft non tendere ext no edema / FROM / Microbiology 08/29/18 11:50 Urine - Urine - Catheterized Urine Culture - Final Escherichia Coli Active Medications Atorvastatin Calcium (Lipitor -) 40 mg PO HS [facility] Last Admin: 09/03/18 21:24 Dose: 40 mg Cephalexin HCl (Keflex -) 500 mg PO BID [facility] Last Admin: 09/04/18 10:09 Dose: 500 mg Diazepam (Valium -) 2 mg PO DAILY [facility] Last Admin: 09/04/18 10:09 Dose: 2 mg Divalproex Sodium (Depakote -) 500 mg PO HS [facility] Last Admin: 09/03/18 21:25 Dose: 500 mg Docusate Sodium (Colace -) 100 mg PO Q12H PRN PRN Reason: CONSTIPATION Last Admin: 08/31/18 22:39 Dose: 100 mg Levothyroxine Sodium (Synthroid -) 88 mcg PO DAILY@0700 [facility] Last Admin: 09/04/18 06:10 Dose: 88 mcg Losartan Potassium (Cozaar -) 25 mg PO DAILY [facility] Last Admin: 09/04/18 10:09 Dose: 25 mg Melatonin (Melatonin) 10 mg PO HS PRN PRN Reason: INSOMNIA Last Admin: 09/03/18 21:25 Dose: 10 mg Metoprolol Succinate (Toprol Xl -) 100 mg PO DAILY [facility] Last Admin: 09/04/18 10:09 Dose: 100 mg Nifedipine (Procardia Xl -) 30 mg PO DAILY [facility] Last Admin: 09/04/18 10:09 Dose: 30 mg Non-Formulary Medication (Pimavanserin Tartrate [Nuplazid]) 34 mg PO DAILY [facility] Quetiapine Fumarate (Seroquel -) 25 mg PO HS [facility] Last Admin: 09/03/18 21:25 Dose: 25 mg # metabolic encephalopathy setting of UTI full assist for all ADLs need guidance although physically able to dress and toilet self. baseline dementia with behavior changes --better control on current meds # UTI e.coli completed abx treatment # HTN continue current medication # parkinsons per neuro psychosis better control Problem List - Problems (1) Restlessness and agitation Code(s): R45.1 - RESTLESSNESS AND AGITATION (2) Altered mental status Code(s): R41.82 - ALTERED MENTAL STATUS, UNSPECIFIED Qualifiers: Altered mental status type: unspecified Qualified Code(s): R41.82 - Altered mental status, unspecified (3) Urinary tract infection Code(s): N39.0 - URINARY TRACT INFECTION, SITE NOT SPECIFIED Qualifiers: Urinary tract infection type: site unspecified Hematuria presence: without hematuria Qualified Code(s): N39.0 - Urinary tract infection, site not specified
[2018-09-04] MEDS ORDERED: PT OWN MED DRAWER 7, Y5N ONE (20:33)
[2018-09-04] MEDS: DIVALPROEX SODIUM 500 MG TABLET E.C. PO SCH (20:59)
[2018-09-04] MEDS: ATORVASTATIN CA 40 MG TABLET (FP) PO SCH (20:59)
[2018-09-04] MEDS: MELATONIN 5 MG TABLETS PO PRN (20:59)
[2018-09-04] MEDS: QUEtiapine FUMARATE 25 MG TABLET (FP) PO SCH (20:59)
[2018-09-05] MEDS: LEVOTHYROXINE NA 88 MCG TABLET (FP) PO SCH (06:05)
[2018-09-05] MEDS: CEPHALEXIN MONOHYDRATE 500 MG CAPSULE (UD) PO SCH (09:51)
[2018-09-05] MEDS: diazePAM 2 MG TABLET PO SCH (09:51)
[2018-09-05] MEDS: NIFEdipine E.R. 30 MG TABLET (FP) PO SCH (09:51)
[2018-09-05] MEDS: LOSARTAN POTASSIUM 25 MG TABLET PO SCH (09:51)
[2018-09-05 10:30] VITALS: BP 148/68; PULSE 70; TEMP 97.8
== END 2018-09-05 11:25 | DRG 689 ==
LOC: JER 09:47 → JERBED 15:41 → J7W 21:02
PROVIDERS: ADMIT Family Medicine; ATTEND Family Medicine
DX: N39.0 Urinary tract infection, site not specified (principal); G92 Toxic encephalopathy; G20 Parkinson's disease; E78.5 Hyperlipidemia, unspecified; G47.00 Insomnia, unspecified; Z88.0 Allergy status to penicillin; E03.9 Hypothyroidism, unspecified; I10 Essential (primary) hypertension; R45.1 Restlessness and agitation; B96.20 Unspecified Escherichia coli [E. coli] as the cause of diseases classified elsewhere
CPT/HCPCS: 36415; 70450-TC; 71046-TC-FY; 80053; 81003; 81015; 82140; 82550; 82607; 84443; 84484; 85025; 85027; 87086; 87186; 93005; 93010; 97116-GP; 97161-GP; 99284-25

== ENCOUNTER 2018-11-01 14:11 | Emergency (ER) | payer OTHER ==
[2018-11-01 14:20] VITALS: TEMP 97.6; BMI 28.1
--- NOTE | 2018-11-01 15:38 | PDOC ---
History of Present Illness - General Chief Complaint: Tremors Stated Complaint: DIZZINESS History Source: Patient Exam Limitations: No Limitations - History of Present Illness Initial Comments: 11/01/18 16:28 73 yo F with a hx of Past History - Past Medical History Allergies/Adverse Reactions: Allergies Allergy/AdvReac Type Severity Reaction Status Date / Time codeine Allergy Verified 11/01/18 14:17 Penicillins Allergy Verified 11/01/18 14:17 Home Medications: Ambulatory Orders Atorvastatin Ca [Lipitor] 40 mg PO HS 08/29/18 Diazepam [Valium] 2 mg PO DAILY 08/29/18 Divalproex [Depakote -] 500 mg PO HS 08/29/18 Etodolac [Etodolac ER] 400 mg PO DAILY 08/29/18 Levothyroxine Sodium [Levoxyl] 88 mcg PO DAILY 08/29/18 Losartan Potassium 25 mg PO DAILY 08/29/18 Metoprolol Succinate 100 mg PO DAILY 08/29/18 Nifedipine ER [Procardia XL -] 30 mg PO DAILY 08/29/18 Pimavanserin Tartrate [Nuplazid] 34 mg PO DAILY 08/29/18 Cephalexin Monohydrate [Keflex -] 500 mg PO BID capsule 09/02/18 Divalproex [Depakote -] 500 mg PO HS tablet.ec 09/02/18 Docusate Sodium [Colace -] 100 mg PO Q12H PRN capsule 09/02/18 Melatonin 10 mg PO HS PRN tab 09/02/18 Quetiapine Fumarate [Seroquel -] 25 mg PO HS tablet 09/02/18 Sulfamethoxazole/Trimethoprim [Bactrim Ds -] 1 tab PO BID #14 tablet 11/01/18 Sulfamethoxazole/Trimethoprim [Bactrim Ds -] 1 tab PO BID #6 tablet 11/01/18 Anemia: Yes Cancer: Yes (uterine CA) COPD: No HTN: Yes Hypercholesterolemia: Yes Psychiatric Problems: Yes (DEPRESSION) Seizures: Yes Thyroid Disease: Yes (hypothyroidism) - Immunization History Immunization Up to Date: Yes - Suicide/Smoking/Psychosocial Hx Smoking History: Never smoked Have you smoked in the past 12 months: No If you are a former smoker, when did you quit?: 20 years ago Hx Alcohol Use: No Drug/Substance Use Hx: No Substance Use Type: None *Physical Exam - Vital Signs Last Vital Signs Temp Pulse Resp BP Pulse Ox 97.6 F 64 17 140/60 99 11/01/18 14:18 11/01/18 14:18 11/01/18 14:18 11/01/18 14:18 11/01/18 14:18 Moderate Sedation - Procedure Monitoring Vital Signs: Procedure Monitoring Vital Signs Temperature 97.6 F 11/01/18 14:18 Pulse Rate 64 11/01/18 14:18 Respiratory Rate 17 11/01/18 14:18 Blood Pressure 140/60 11/01/18 14:18 O2 Sat by Pulse Oximetry (%) 99 11/01/18 14:18 ED Treatment Course - LABORATORY CBC & Chemistry Diagram: 11/01/18 17:15 11/01/18 17:28 *DC/Admit/Observation/Transfer Diagnosis at time of Disposition: Urinary tract infection Qualifiers: Urinary tract infection type: site unspecified Hematuria presence: without hematuria Qualified Code(s): N39.0 - Urinary tract infection, site not specified - Discharge Dispostion Disposition: HOME Decision to Admit order: No - Prescriptions Prescriptions: Sulfamethoxazole/Trimethoprim [Bactrim Ds -] 1 tab PO BID #14 tablet Sulfamethoxazole/Trimethoprim [Bactrim Ds -] 1 tab PO BID #6 tablet - Referrals Referrals: Ana Solomon MD [Primary Care Provider] - Song Conde MD [Staff Physician] - - Patient Instructions Printed Discharge Instructions: DI for Urinary Tract Infection (UTI) Additional Instructions: you were seen in the emergency department for headache. you were found to have a UTI. your ct head was negative. please follow up with Dr. Conde within 3 days after discharge for follow up care and evaluation. please return to the emergency department if you have worsening symptoms or new concerning symptoms. please follow up with your primary medical doctor within 1 week after discharge. thank you. - Post Discharge Activity
[2018-11-01 17:36] LABS: BASO % 0.6 % (0-2.0); EOS % 0.5 % (0-4.5); HEMATOCRIT 37.6 % (32.4-45.2); HEMOGLOBIN 13.1 GM/dL (10.7-15.3); MCH 35.3 pg (25.7-33.7); MCHC 34.9 g/dl (32.0-36.0); MEAN CELL VOLUME 101.2 fl (80-96); MEAN PLT VOLUME 8.9 fl (7.5-11.1); MONO % 5.8 % (3.8-10.2); NEUT % 61.1 % (42.8-82.8); PLATELET COUNT 151 K/MM3 (134-434); RBC 3.71 M/mm3 (3.60-5.2); WHITE BLOOD COUNT 7.5 K/mm3 (4.0-10.0)
[2018-11-01 17:44] LABS: URINE APPEARANCE CLEAR; URINE BILIRUBIN NEGATIVE (<2.0 mg/dL); URINE COLOR STRAW; URINE GLUCOSE (UA) NEGATIVE (NEGATIVE); URINE KETONE NEGATIVE (NEGATIVE); URINE LEUK ESTERASE 1+ (NEGATIVE); URINE NITRITE NEGATIVE (NEGATIVE); URINE PROTEIN NEGATIVE (NEGATIVE); URINE UROBILINOGEN NEGATIVE mg/dL (0.2-1.0)
[2018-11-01 17:47] LABS: EPI CELLS RARE /HPF (FEW); URINE MUCUS RARE
[2018-11-01] MEDS ORDERED: ACETAMINOPHEN 325 MG TABLET (FP) PO ONE (17:56)
[2018-11-01 18:16] LABS: ALBUMIN 3.6 g/dl (3.4-5.0); ALK PHOS 59 U/L (45-117); ANION GAP 5 MMOL/L (8-16); BILIRUBIN,TOTAL 0.4 mg/dL (0.2-1); BLOOD UREA NITROGEN 13 mg/dL (7-18); CALCIUM 8.6 mg/dL (8.5-10.1); CHLORIDE 107 mmol/L (98-107); CO2 30 mmol/L (21-32); CREATININE 0.5 mg/dL (0.55-1.3); GLUCOSE,RANDOM 95 mg/dL (74-106); POTASSIUM 3.8 mmol/L (3.5-5.1); SGOT/AST 14 U/L (15-37); SGPT/ALT 17 U/L (13-61); SODIUM 141 mmol/L (136-145); TOT PROT 6.6 g/dl (6.4-8.2)
[2018-11-01] MEDS ORDERED: diazePAM 5 MG TABLET PO ONE (18:40)
[2018-11-01] MEDS ORDERED: KETOROLAC TROMETHAMINE 15 MG/ML VIAL IVPUSH ONE (18:40)
--- NOTE | 2018-11-01 18:46 | PDOC ---
Attending Attestation - Resident Resident Name: MeganSarthak - ED Attending Attestation I have performed the following: I have examined & evaluated the patient, The case was reviewed & discussed with the resident, I agree w/resident's findings & plan - HPI HPI: 11/01/18 18:41 73 year old female with a PMH of hypothyroidism, HTN, HLD, vertigo, and parkinson's disease and tremors who presents to the emergency department for evaluation of occipital headache radiating to top of head and weakness x 2 days. She describes the headache as constant, sharp and throbbing in nature, ranked 8/10 in severity. Patient reports associated symptoms of intermittent episodes of tremors as well as urinary frequency, and notes a burning sensation along right side of her face (which is chronic x 1 year). As per friend at bedside, patient has a rash on right side of face radiating to posterior neck ( chronic). Denies taking medications to alleviate aforementioned symptoms. No uri symptoms, cp, neck pain, sob, f/c, and n/v. - Physicial Exam PE: 11/01/18 18:44 alert, oriented appropriate. +anxious. +tremulous in BUE (chronic). NAD, well appearing, PERRL, EOMI, nl conjunctiva, anicteric; neck supple. lungs clear, RRR , abdomen soft nontender. VELASCO x4, no focal neuro deficits. speech clear. gait stable, no ataxia. No peripheral edema. normal color for ethnicity, WWP. +dry eczematous rash on face, no vesicles, no drainage. no tenderness. - Medical Decision Making 11/01/18 18:46 See HPI for details Vital signs reviewed, wnl. Prior notes reviewed, including admissions, discharges and consultations. laboratory results and imaging reviewed, basic labs and lytes wnl, CT head neg for pathology UA_with leuk esterase, +WBCs 8 CXR_no acute pathology EKG normal sinus rhythm, no interval abnormalities, narrow QRS, ST and T wave segments and morphology normal. Nonspecific T wave abnormalities ED course: analgesia, valium for tremors/anxiety (very tremulous; not withdrawal , no ETOH use or other drugs) likely trigeminal neuralgia, has neuro followup with Dr Conde already. no e/o CVA or mass/bleed. no vesicular lesions or temporality to suggest herpes zoster. UTI treatment with outpatient keflex x 1 week with urinary sx/frequency/ dysuria. f/u urine cultures Pt informed of my clinical impression, treatment recommendations and disposition plan. All questions answered to patient's satisfaction and expressed understanding and comfort with this. Reasons for returning to the ED sooner discussed with the patient otherwise, follow up with primary care physician. At the time of discharge, the patient is alert, clinically improved, tolerating po and verbalizes understanding of instructions. Patient does not suffer from an acute life-threatening medical condition at this time she is safe for outpatient follow-up. 11/01/18 19:34
[2018-11-01] MEDS ORDERED: diazePAM 5 MG TABLET ONE (19:30)
[2018-11-01] MEDS ORDERED: KETOROLAC TROMETHAMINE 15 MG/ML VIAL ONE (19:30)
[2018-11-01] MEDS ORDERED: ACETAMINOPHEN 325 MG TABLET (FP) ONE (19:30)
[2018-11-01 19:45] VITALS: BP 134/79; PULSE 60
--- NOTE | 2018-11-02 15:02 | EKG ---
Test Reason : Blood Pressure : / mmHG Vent. Rate : 056 BPM Atrial Rate : 056 BPM P-R Int : 180 ms QRS Dur : 080 ms QT Int : 426 ms P-R-T Axes : 061 030 053 degrees QTc Int : 411 ms POOR DATA QUALITY, INTERPRETATION MAY BE ADVERSELY AFFECTED SINUS BRADYCARDIA OTHERWISE NORMAL ECG WHEN COMPARED WITH ECG OF 29-AUG-2018 12:42, NO SIGNIFICANT CHANGE WAS FOUND Confirmed by DWAIN MONTAÑO, MISSY ([id number]) on 11/02/2018 3:01:42 PM Referred By: Confirmed By:MISSY PRAKASH MD
== END 2018-11-01 19:47 | disposition home or self-care (01) ==
LOC: JER 14:11
DX: N39.0 Urinary tract infection, site not specified (principal); I10 Essential (primary) hypertension; E78.00 Pure hypercholesterolemia, unspecified; E03.9 Hypothyroidism, unspecified; F41.9 Anxiety disorder, unspecified; F32.9 Major depressive disorder, single episode, unspecified; D64.9 Anemia, unspecified; Z85.42 Personal history of malignant neoplasm of other parts of uterus
CPT/HCPCS: 36415; 70450-TC; 71045-TC-FY; 80053; 81003; 81015; 82550; 84484; 85025; 87086; 87186; 93005; 93010; 99282-25

== ENCOUNTER 2019-04-14 05:39 | Emergency (ER) | payer OTHER ==
[2019-04-14 05:54] VITALS: BMI 26.6
--- NOTE | 2019-04-14 07:17 | PDOC ---
History of Present Illness - General Chief Complaint: Injury Stated Complaint: FALL Time Seen by Provider: 04/14/19 07:16 History Source: Patient Exam Limitations: No Limitations - History of Present Illness Initial Comments: Pt is a 74yo F, with PMH of HTN, HLD, hypothyroid, and PD, who is presenting with complaints of L shoulder pain after a fall. Pt states she was attempting to stand up from the couch, when she slipped off the edge of the couch, landing on her L side. Pt lives in an assisted living facility, and was able to press the buzzer for help. Pt denies any ppt symptoms, including no chest pain or SOB. Pt states she has baseline tremors and was recently diagnosed with PD ( followed by Dr. Conde). She denies changes to her meds and recent falls. Pt denies any recent fevers/chills, headache, vision changes, syncope, chest pain, palpitations, SOB, nausea/vomiting, abdominal pain, urinary symptoms, diarrhea/ constipation, or leg swelling. Allergies: PCN (codeine listed is only adverse effects) PCP: Dr. Solomon Social: Pt denies any cigarette, alcohol, or drug use. Pt denies any recent travel or sick contacts. Surgical: R wrist surgery during childhood Family: no relevant history. 04/14/19 08:03 Past History - Travel Traveled outside of the country in the last 30 days: No Close contact w/someone who was outside of country & ill: No - Past Medical History Allergies/Adverse Reactions: Allergies Allergy/AdvReac Type Severity Reaction Status Date / Time codeine Allergy Verified 04/14/19 05:44 Penicillins Allergy Verified 04/14/19 05:44 Home Medications: Ambulatory Orders Atorvastatin Ca [Lipitor] 10 mg PO HS 08/29/18 Levothyroxine Sodium [Levoxyl] 88 mcg PO DAILY 08/29/18 Metoprolol Succinate 25 mg PO DAILY 08/29/18 Divalproex [Depakote -] 500 mg PO HS tablet.ec 09/02/18 Melatonin 10 mg PO HS PRN tab 09/02/18 Sulfamethoxazole/Trimethoprim [Bactrim Ds -] 1 tab PO BID #14 tablet 11/01/18 Azelastine HCl 137 mcg NS BID 04/14/19 Clotrimazole [Lotrimin 1% Cream -] 1 applic TP BID 04/14/19 Escitalopram Oxalate [Lexapro -] 10 mg PO DAILY 04/14/19 Inositol 650 mg PO BID 04/14/19 Naproxen 220 mg PO BID 04/14/19 Nifedipine [Procardia Xl] 30 mg PO DAILY 04/14/19 Pimavanserin Tartrate [Nuplazid] 34 mg PO DAILY 04/14/19 Anemia: Yes Cancer: Yes (uterine CA) COPD: No HTN: Yes Hypercholesterolemia: Yes Psychiatric Problems: Yes (DEPRESSION) Seizures: Yes Thyroid Disease: Yes (hypothyroidism) Other medical history: parkinson - Immunization History Td Vaccination: Yes TDAP Vaccination: Yes Immunization Up to Date: Yes - Suicide/Smoking/Psychosocial Hx Smoking History: Never smoked Have you smoked in the past 12 months: No If you are a former smoker, when did you quit?: 20 years ago Information on smoking cessation initiated: No Hx Alcohol Use: No Drug/Substance Use Hx: No Substance Use Type: None Review of Systems - Review of Systems Able to Perform ROS?: Yes Is the patient limited Urdu proficient: No Constitutional: Yes: Weight Stable. No: Chills, Diaphoresis, Fever, Loss of Appetite, Malaise, Weakness HEENTM: No: Blurred Vision, Recent change in vision, Double Vision, Nose Congestion, Throat Pain, Throat Swelling, Difficulty Swallowing Respiratory: No: Cough, Orthopnea, Shortness of Breath Cardiac (ROS): No: Chest Pain, Edema, Irregular Heart Rate, Lightheadedness, Palpitations, Syncope, Chest Tightness ABD/GI: No: Constipated, Diarrhea, Nausea, Poor Appetite, Poor Fluid Intake, Vomiting : No: Burning, Dysuria, Frequency, Pain, Urgency Musculoskeletal: Yes: See HPI, Joint Pain. No: Back Pain, Joint Swelling, Muscle Pain, Muscle Weakness, Neck Pain Integumentary: Yes: See HPI, Bruising (over R thumb base). No: Rash Neurological: Yes: Tremors (baseline, PD). No: Headache, Numbness, Paresthesia , Weakness, Unsteady Gait (no falls more than usual lately), Dizziness Psychiatric: No: Sleep Pattern Change, Change in Appetite Endocrine: No: Increased Urine, Change in Weight Hematologic/Lymphatic: No: Anemia, Blood Clots, Easy Bleeding, Easy Bruising All Other Systems: Reviewed and Negative *Physical Exam - Vital Signs Last Vital Signs Temp Pulse Resp BP Pulse Ox 98.5 F 61 20 173/65 H 95 04/14/19 06:07 04/14/19 06:07 04/14/19 06:07 04/14/19 06:07 04/14/19 06:07 - Physical Exam Comments: HTN (173/65), pt afebrile. Pt appears anxious and uncomfortable (tremors at baseline per pt), normal body habitus. Pt alert and oriented x3. 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 Radial, ulnar, and axillary distributions intact. No midline spinal tenderness, step-offs, or crepitus. Ecchymosis over base of L thumb, tenderness with L thumb flexion. Swelling and likely displacement of L shoulder, tenderness with L shoulder abduction. No clavicular skin tenting or step-offs. Strong radial pulse b/l. Head normocephalic, atraumatic. Eyes PERRLA, EOMI. Oropharynx without erythema or exudates, no LAD b/l. No nasal congestion, hearing intact. Clear heart sounds, S1/S2, no JVD, or heart murmur. +b/l pitting LE edema to lower naranjo Clear lung sounds, no respiratory distress, wheezes, crackles, or accessory muscle use. No abdominal or CVA tenderness to palpation, no rebound, no guarding. Abdomen soft, non-distended, and with normoactive bowel sounds. Skin without jaundice or rash. 04/14/19 07:49 04/14/19 09:38 Medical Decision Making - Medical Decision Making Pt was seen at bedside, also will be seen by attending Dr. Dale. Pt presenting with complaints of L shoulder pain after a fall. Pt states she was attempting to stand up from the couch, when she slipped off the edge of the couch, landing on her L side. Pt lives in an assisted living facility, and was able to press the buzzer for help. Pt denies any ppt symptoms, including no chest pain or SOB. Pt states she has baseline tremors and was recently diagnosed with PD (followed by Dr. Conde). She denies changes to her meds and recent falls. Pt denies any recent fevers/chills, headache, vision changes, syncope, chest pain, palpitations, SOB, nausea/vomiting, abdominal pain, urinary symptoms, diarrhea/constipation, or leg swelling. Ordered work-up including EKG, x-rays of L hand/wrist and L shoulder (TTP with thumb flexion, so will eval for scaphoid fx/FOOSH, and potential L shoulder dislocation vs fracture). Also ordered CT head and C-spine as pt is >65 and had acute fall, eval for bleed and fractures. Provided 4 IV morphine for improvement of pain. Will continue to reassess pt and monitor for symptomatic improvement. 04/14/19 07:57 ECG: Sinus bradycardia (HR 58, WI 172, QRS 92, QTc 463). No TWIs or significant ST segment changes. No significant changes from prior ECG (11/01/2018). 04/14/19 08:01 Xrays showed no acute fractures in the hand or wrist. Xray of shoulder showed no dislocation. +proximal humerus fracture with greater tuberosity avulsion. Orthopedics paged (Dr. Samuels/Vinay). Pt placed in orthoglass splint to reduce pronation in case of early scaphoid fracture. Sensation of ulnar, radial, median , and axillary distribution intact. Radial pulse present pre and post splint. Pending CT scans. 04/14/19 09:39 Spoke with Ortho (Dr. Mclean) who states he can see pt in clinic on Wednesday or Wednesday and agrees with plan for splint and sling. Added x-ray of R ankle as pt now complaining of pain over the lateral malleolus. Pt has been ambulatory in ED and b/l LE edema is equal, with minimal TTP of ankle and foot. ROM intact. 04/14/19 10:13 CT head and C-spine negative for fracture. pending x-ray of ankle. 04/14/19 11:22 X-ray of ankle showed no acute fractures. Pt can be discharged to home with follow-up. Pt advised to follow-up with PCP in 1-2 days and has been referred to orthopedics (Dr. Samuels/Vinay). Strict return precautions provided with pt understanding. 04/14/19 12:43 *DC/Admit/Observation/Transfer Diagnosis at time of Disposition: Left shoulder pain Qualifiers: Chronicity: acute Qualified Code(s): M25.512 - Pain in left shoulder Fracture, humerus closed Qualifiers: Encounter type: initial encounter Humerus Location: proximal Fracture morphology: unspecified fracture morphology Laterality: left Qualified Code(s): S42.202A - Unspecified fracture of upper end of left humerus, initial encounter for closed fracture Fall Qualifiers: Encounter type: initial encounter Qualified Code(s): W19.XXXA - Unspecified fall, initial encounter - Discharge Dispostion Disposition: HOME Condition at time of disposition: Improved Decision to Admit order: No - Referrals Referrals: Ana Solomon MD [Primary Care Provider] - Zhen Mclean MD [Staff Physician] - - Patient Instructions Printed Discharge Instructions: How to Prevent Falls, DI for Shoulder Fracture Additional Instructions: You were seen in the ER today for left shoulder pain after a fall. The results of your imaging today showed a fracture of the left upper arm, which needs to be seen by orthopedics (Dr. Mclean) on Wednesday or Wednesday of next week. Please continue to wear your sling until your visit. Please follow-up with your primary care doctor within 1-2 days to discuss your visit and make sure your symptoms have improved. Please return to the ER if you have any worsening pain, numbness, tingling, or change of color to your arm, development of fevers or chills, loss of consciousness, inability to tolerate food or fluids, or any other concerns. - Post Discharge Activity
[2019-04-14] MEDS ORDERED: ACETAMINOPHEN 325 MG TABLET (FP) PO ONE (07:39)
[2019-04-14] MEDS ORDERED: morphine CARPU-JECT 4 MG/1 ML DISP.SYRIN IVPUSH ONE (07:43)
--- NOTE | 2019-04-14 07:44 | PDOC ---
Attending Attestation - Resident Resident Name: Rivka Riojas - ED Attending Attestation I have performed the following: I have examined & evaluated the patient, The case was reviewed & discussed with the resident, I agree w/resident's findings & plan, Exceptions are as noted - HPI HPI: 04/14/19 07:42 74yo F hx htn, hl, parkinsons p/w acute L shoulder pain, L wrist pain, and R ankle pain after falling from her cough. Pt lives in assisted living facility, states she was sitting on her couch when she heard the doorbell ring for her medications and became startled. She didn't realize that she was on the edge of the couch and subsequently lost her balance, landing on her L outstretched arm. Denies LOC or head strike. Also reports R sided ankle pain over her lateral malleolus. Denies preceding dizziness, headache, cp, sob, focal weakness/ numbness. Denies recent abd pain, N/V/D, visual sxs, LE edema, urinary sxs, F/ C. - Physicial Exam PE: 04/14/19 11:19 agree with resident exam - Medical Decision Making 04/14/19 11:20 74yo F presents to the ED with mechanical fall, FOOSH, now with pain to L shoulder, L wrist, R ankle +deformity to L proximal arm - XR with humeral fracture. Sling applied 2+ distal radial LUE pulse, normal strength and sensation distally, entire LUE NVI +mild snuffbox ttp but XR negative, distal radial splint placed Case discussed with Dr. Mclean who reviewed films, agrees with sling/splint and will see pt as an outpt CTH/C-spine ordered as L arm fracture possibly distracting, but pt denies headstrike. Studies pending XR of R ankle also pending Pain well controlled with percocet 04/14/19 13:59 CTH/C-spine neg Pt clincically stable for DC home I discussed the physical exam findings, ancillary test results and final diagnoses with the patient. I answered all of the patient's questions. The patient was satisfied with the care received and felt comfortable with the discharge plan and treatment plan. The patient will call their primary care physician within 24 hours to arrange follow-up and will return to the Emergency Department with any new, persistent or worsening symptoms. Heart Score/ECG Review #1 04/14/19 11:40 Twelve-lead EKG was performed and reviewed by me. Sinus bradycardia, rate 58. Normal axis and intervals. No ST elevations or T-wave inversions.
[2019-04-14 10:44] VITALS: BP 139/66; PULSE 57; TEMP 97.5
--- NOTE | 2019-04-14 13:27 | EKG ---
Test Reason : Blood Pressure : / mmHG Vent. Rate : 058 BPM Atrial Rate : 058 BPM P-R Int : 172 ms QRS Dur : 092 ms QT Int : 472 ms P-R-T Axes : 059 039 055 degrees QTc Int : 463 ms POOR DATA QUALITY, INTERPRETATION MAY BE ADVERSELY AFFECTED SINUS BRADYCARDIA WHEN COMPARED WITH ECG OF 01-NOV-2018 16:29, NO SIGNIFICANT CHANGE WAS FOUND Confirmed by IRISH LIANG MD ([id number]) on 04/14/2019 1:27:21 PM Referred By: Confirmed By:IRISH LIANG MD
== END 2019-04-14 12:55 | disposition home or self-care (01) ==
LOC: JER 05:39
PROC: 2W39X1Z Immobilization of Left Upper Extremity using Splint (ICD-10-PCS; principal; 2019-04-14)
DX: M25.512 Pain in left shoulder (principal); S42.202A Unspecified fracture of upper end of left humerus, initial encounter for closed fracture; W18.39XA Other fall on same level, initial encounter; Y93.89 Activity, other specified; Y92.89 Other specified places as the place of occurrence of the external cause; I10 Essential (primary) hypertension; E78.5 Hyperlipidemia, unspecified; E03.9 Hypothyroidism, unspecified; F32.9 Major depressive disorder, single episode, unspecified; G20 Parkinson's disease; Z87.891 Personal history of nicotine dependence
CPT/HCPCS: 29105; 70450-TC; 72125-TC; 73030-TC-LT-FY; 73110-TC-LT-FY; 73130-TC-LT-FY; 73610-TC-RT-FY; 73630-TC-RT-FY; 93005; 93010; 99283-25

== ENCOUNTER 2019-05-21 16:12 | Inpatient (IN) | payer OTHER ==
--- NOTE | 2019-05-21 16:32 | PDOC ---
History of Present Illness <Ailin Arce - Last Filed: 05/21/19 20:14> - General History Source: Patient Exam Limitations: No Limitations <Song Patino - Last Filed: 05/21/19 20:44> - General Chief Complaint: Lightheaded Stated Complaint: FALL Time Seen by Provider: 05/21/19 16:30 Past History <Ailin Arce - Last Filed: 05/21/19 20:14> - Past Medical History Anemia: Yes Cancer: Yes (uterine CA) COPD: No HTN: Yes Hypercholesterolemia: Yes Psychiatric Problems: Yes (DEPRESSION) Seizures: Yes Thyroid Disease: Yes (hypothyroidism) - Immunization History Td Vaccination: Yes TDAP Vaccination: Yes Immunization Up to Date: Yes - Suicide/Smoking/Psychosocial Hx Smoking History: Never smoked Have you smoked in the past 12 months: No If you are a former smoker, when did you quit?: 20 years ago Hx Alcohol Use: No Drug/Substance Use Hx: No Substance Use Type: None <Song Patino - Last Filed: 05/21/19 20:44> - Past Medical History Allergies/Adverse Reactions: Allergies Allergy/AdvReac Type Severity Reaction Status Date / Time codeine Allergy Verified 05/21/19 16:31 Penicillins Allergy Verified 05/21/19 16:31 Home Medications: Ambulatory Orders Atorvastatin Ca [Lipitor] 10 mg PO HS 08/29/18 Levothyroxine Sodium [Levoxyl] 88 mcg PO DAILY 08/29/18 Metoprolol Succinate 25 mg PO DAILY 08/29/18 Divalproex [Depakote -] 500 mg PO HS tablet.ec 09/02/18 Melatonin 10 mg PO HS PRN tab 09/02/18 Azelastine HCl 137 mcg NS BID 04/14/19 Escitalopram Oxalate [Lexapro -] 10 mg PO DAILY 04/14/19 Inositol 650 mg PO BID 04/14/19 Naproxen 220 mg PO BID 04/14/19 Nifedipine [Procardia Xl] 30 mg PO DAILY 04/14/19 Pimavanserin Tartrate [Nuplazid] 34 mg PO DAILY 04/14/19 Sulfamethoxazole/Trimethoprim [Bactrim Ds -] 0.5 tab PO HS 05/21/19 Review of Systems - Review of Systems Able to Perform ROS?: Yes Is the patient limited Haitian proficient: No <Song Patino - Last Filed: 05/21/19 20:44> *Physical Exam - Vital Signs Last Vital Signs Temp Pulse Resp BP Pulse Ox 98.5 F 71 24 H 146/69 95 05/21/19 16:32 05/21/19 16:32 05/21/19 16:32 05/21/19 16:32 05/21/19 16:32 <Ailin Arce - Last Filed: 05/21/19 20:14> Heart Score/ECG Review - History History: Moderately suspicious - Electrocardiogram EKG: Non specific repolarization disturbance - Age Age: >/= 65 - Risk Factors Risk Factors Heart Score: Yes Hx Hypercholesterolemia, Yes Hx Hypertension Based on the list above the patient has:: 1-2 risk factors - Troponin Troponin: </= normal limit - Score Heart Score - Total: 5 <SukumarSong - Last Filed: 05/21/19 20:44> ED Treatment Course - LABORATORY CBC & Chemistry Diagram: 05/21/19 17:45 05/21/19 17:45 - ADDITIONAL ORDERS Additional order review: Laboratory Results 05/21/19 05/21/19 05/21/19 17:45 17:45 16:50 Sodium 144 Potassium 3.9 Chloride 110 H Carbon Dioxide 28 Anion Gap 6 L BUN 21.0 H Creatinine 0.6 Est GFR (CKD-EPI)AfAm 102.62 Est GFR (CKD-EPI)NonAf 88.54 Random Glucose 110 H Calcium 8.2 L Total Bilirubin 0.2 AST 17 ALT 15 Alkaline Phosphatase 96 Creatine Kinase 42 Troponin I < 0.02 Total Protein 6.3 L Albumin 3.2 L Urine Color Yellow Urine Appearance Clear Urine pH 7.5 Ur Specific [place] 1.015 Urine Protein Negative Urine Glucose (UA) Negative Urine Ketones Trace Urine Blood Trace-lysed Urine Nitrite Negative Urine Bilirubin Negative Urine Urobilinogen 0.2 Ur Leukocyte Esterase Trace Urine WBC (Auto) 6.0 Urine RBC (Auto) 3.9 Urine Casts (Auto) 0.3 U Epithel Cells (Auto) 1.0 Urine Bacteria (Auto) 5.6 05/21/19 17:45 RBC 3.36 L MCV 103.5 H MCHC 33.8 RDW 14.7 D MPV 8.7 Neutrophils % 50.7 Lymphocytes % 38.0 Monocytes % 7.6 Eosinophils % 2.4 D Basophils % 1.3 <Ailin Arce - Last Filed: 05/21/19 20:14> - LABORATORY CBC & Chemistry Diagram: 05/21/19 17:45 05/21/19 17:45 <Song Patino - Last Filed: 05/21/19 20:44> Medical Decision Making - Medical Decision Making 05/21/19 18:17 74 yo F pmh HTN, HLD, hypothyroidism BIBEMS from assisted living after a mechanical fall. Pt states she was turning and slipped, subsequently got up and slipped again. She endorses hitting the left side of her head and possibly her left shoulder, which was fractured in a previous fall. There was no LOC, she denies left shoulder pain, not on AC. Pt denies numbness, tingling, weakness, chest pain, shortness of breath, n/v/d, poor appetite, bloody stool, or dysuria. She endorses having dizziness that had resolved before the fall but the symptom was not a regular occurrence. Endorses a month of b/l leg swelling and subsequent leg heaviness. PCP - Dr. Solomon ([phone]) Allergies to PCN, codeine GEN: Well appearing, NAD, comfortable. Alert and oriented. HEENT: NC/AT, there are no abrasions, lacerations, hematomas, or deformities. EOMI, PERRLA, CN II-XII intact. CV: S1/S2, RRR, no m/r/g LUNG: CTAB, no wheezes, crackles, rales, rhonchi. GI: soft, ndnt, +BS, no guarding, no rebound. Neg CVAT b/l. No masses. EXTREMITIES: 2+ pitting edema up to the knees of the b/l LE. NEURO: Conversing appropriately, moving all extremities well, sensation symmetric and intact throughout. 74 yo F presenting from assisted living after a fall w/ pos head strike w/o LOC. Had an episode of dizziness in the [facility]. Neurologically intact, vital signs reassuring. - cbc, cmp, cardiac - ekg, cxr, XR left shoulder - CT head 05/21/19 19:04 Initial troponin neg. EKG today showing LBBB that was not present when compared to 04/14/19 EKG; both have poor baselines. HEART Score - 5. Requires Obs. - CT Head 05/21/19 Findings : No acute skull fracture, intracranial hemorrhage, or parenchymal edema demonstrated. - L shoulder XR showing existing humerus fracture Discussed patient w/ PCP Dr. Medellin - she is concerned given her age, h/o parkinsons, and this being her 2nd fall that there may be a serious etiology. Requesting observation and telemetry. 05/21/19 20:30 Patient endorsed to hospitalist resident - admitted under Dr. Solano <Song Patino - Last Filed: 05/21/19 20:44> *DC/Admit/Observation/Transfer <Ailin Arce - Last Filed: 05/21/19 20:14> - Discharge Dispostion Decision to Admit order: Yes <Song Patino - Last Filed: 05/21/19 20:44> Diagnosis at time of Disposition: Pre-syncope, Parkinson disease Fall Qualifiers: Encounter type: subsequent encounter Qualified Code(s): W19.XXXD - Unspecified fall, subsequent encounter - Discharge Dispostion Condition at time of disposition: Guarded
[2019-05-21 17:40] LABS: PH,URINE 7.5 (5.0-8.0); URINE APPEARANCE Clear; URINE BILIRUBIN Negative (NEGATIVE); URINE COLOR Yellow; URINE GLUCOSE (UA) Negative (NEGATIVE); URINE KETONE Trace (NEGATIVE); URINE LEUK ESTERASE Trace (NEGATIVE); URINE NITRITE Negative (NEGATIVE); URINE PROTEIN Negative (NEGATIVE); URINE UROBILINOGEN 0.2 mg/dL (0.2-1.0)
[2019-05-21 18:00] LABS: BASO % 1.3 % (0-2.0); EOS % 2.4 % (0-4.5); HEMATOCRIT 34.7 % (32.4-45.2); HEMOGLOBIN 11.8 GM/dL (10.7-15.3); MCHC 33.8 g/dl (32.0-36.0); MEAN CELL VOLUME 103.5 fl (80-96); MEAN PLT VOLUME 8.7 fl (7.5-11.1); MONO % 7.6 % (3.8-10.2); NEUT % 50.7 % (42.8-82.8); PLATELET COUNT 135 K/MM3 (134-434); RBC 3.36 M/mm3 (3.60-5.2); RDW 14.7 % (11.6-15.6)
[2019-05-21 18:26] LABS: ALBUMIN 3.2 g/dl (3.4-5.0); BILIRUBIN,TOTAL 0.2 mg/dL (0.2-1); CALCIUM 8.2 mg/dL (8.5-10.1); CREATININE 0.6 mg/dL (0.55-1.3); POTASSIUM 3.9 mmol/L (3.5-5.1); TOT PROT 6.3 g/dl (6.4-8.2)
[2019-05-21 18:50] LABS: HYALINE CASTS 0.3 /lpf (0-8); URINE BACTERIA 5.6 /hpf (NEGATIVE); URINE RBC 3.9 /hpf (0-4)
--- NOTE | 2019-05-21 18:58 | PDOC ---
Documentation entered by Michael Hunt SCRIBE, acting as scribe for Bertha Reza MD. Bertha Reza MD: This documentation has been prepared by the Marilee ruffin Nirvannie, SCRIBE, under my direction and personally reviewed by me in its entirety. I confirm that the documentation accurately reflects all work, treatment, procedures, and medical decision making performed by me. Attending Attestation - Resident Resident Name: Song Patino - ED Attending Attestation I have performed the following: I have examined & evaluated the patient, The case was reviewed & discussed with the resident, I agree w/resident's findings & plan, Exceptions are as noted - HPI HPI: 05/21/19 18:05 The patient is a 74 year old female, with a significant past medical history of HTN, HLD, hypothyroid, and Parkinsons Disease, who presents to the emergency department s/p fall. Patient endorses walking up the stairs at her assisted nursing facility and while on flat ground she slipped and hit her head on a column then got up and subsequently slipped and hit her head on a wall. Patient notes she was feeling lightheaded this morning at which time her blood pressure was checked and she was hypertensive, she endorses the symptoms resolving on its own. She denies any LOC, chest pain, or shortness of breath. Allergies: Codeine, Penicillins - Physicial Exam PE: 05/21/19 18:06 GENERAL: Awake, alert, and fully oriented, in no acute distress HEAD: Small abrasion to the forehead. NECK: Normal ROM, supple, no lymphadenopathy, JVD, or masses LUNGS: Breath sounds equal, clear to auscultation bilaterally. No wheezes, and no crackles HEART: Regular rate and rhythm, normal S1 and S2, no murmurs, rubs or gallops ABDOMEN: Soft, nontender, normoactive bowel sounds. No guarding, no rebound. No masses EXTREMITIES: +Left arm in a sling. + 1+ pitting edema up to the knees blt. NEUROLOGICAL: Cranial nerves II through XII grossly intact. Normal speech, normal gait SKIN: Warm, Dry, normal turgor, no rashes or lesions noted. - Medical Decision Making 05/21/19 18:50 pt presents to the ED after mechanical slip and fall. patient had a transient episode of lightheadness that resolved spontaneously prior to the fall. Denies current complaints except for chronic bilateral leg edema. Given age, will check CT head to rule out intracranial bleed. Will check EKG and labs to investigate for cardiac causes of lightheadness. Given that adry is asymptomatic now, will discharge home if labs are negative.
[2019-05-21] MEDS ORDERED: FOLIC ACID INJECTION - 1 MG, THIAMINE HCL 100 MG, MULTIVIT INJECTION ADULT 10 ML in SOD... IVPB ONE (19:53)
--- NOTE | 2019-05-21 20:32 | PN ---
Teaching Attending Note Name of Resident: Annika Fontanez ATTENDING PHYSICIAN STATEMENT I saw and evaluated the patient. I reviewed the resident's note and discussed the case with the resident. I agree with the resident's findings and plan as documented. SUBJECTIVE: Patient is a 74 year old woman with a PMH of Penicillin allergy, HTN, HLD, hypothyroid, and Parkinsons Disease, who presents from Assisted Living Facility to the ER after a fall. Patient was walking up the stairs at her assisted nursing facility and while on flat ground she slipped and hit her head on a column then got up and subsequently slipped and hit her head on a wall. Patient notes she was feeling lightheaded this morning at which time her blood pressure was checked and she was hypertensive. Has had bilateral leg swelling over the past month. She denies LOC, chest pain, shortness of breath, left shoulder pain, numbness, tingling, weakness, nausea, vomiting, diarrhea, bloody stool or dysuria. She is not on anticoagulation. OBJECTIVE: Alert and not orthostatic Vital Signs Period Temp Pulse Resp BP Sys/Hu Pulse Ox Last 24 Hr 98.5 F 71 24 146/69 95 HEENT: No Jaundice, eye redness or discharge, PERRLA, EOMI. Normocephalic, atraumatic. External ears are normal and hearing is grossly intact. No nasal discharge. Neck: Supple, nontender. No palpable adenopathy or thyromegaly. No JVD Chest: Good effort. Clear to auscultation and percussion. Heart: Regular. No S3, rub or murmur Abdomen: Not distended, soft, nontender and no HSM. No rebound or guarding. Normal bowel sounds. Ext: Peripheral pulses intact. Bilateral leg edema. Left arm in a sling. Skin: Warm and dry. No petechiae, rash or ecchymosis. Neuro: Alert. Oriented x3. CN 2-12 grossly intact. Sensation grossly intact in all four extremities and DTR are symmetric. Psych: Appropriate mood and affect. Good insight. Current Medications Generic Name Dose Route Start Last Admin Trade Name Freq PRN Reason Stop Dose Admin Folic Acid 1 mg/ Thiamine HCl 1,000 mls @ 125 mls/hr 05/21/19 19:53 100 mg/ Multivitamins/Minerals IVPB 05/22/19 03:52 10 ml/ Sodium Chloride ONCE ONE Home Medications Medication Instructions Recorded Atorvastatin Ca [Lipitor] 10 mg PO HS 08/29/18 Levothyroxine Sodium [Levoxyl] 88 mcg PO DAILY 08/29/18 Metoprolol Succinate 25 mg PO DAILY 08/29/18 Divalproex [Depakote -] 500 mg PO HS tablet.ec 09/02/18 Melatonin 10 mg PO HS PRN tab 09/02/18 Azelastine HCl 137 mcg NS BID 04/14/19 Escitalopram Oxalate [Lexapro -] 10 mg PO DAILY 04/14/19 Inositol 650 mg PO BID 04/14/19 Naproxen 220 mg PO BID 04/14/19 Nifedipine [Procardia Xl] 30 mg PO DAILY 04/14/19 Pimavanserin Tartrate [Nuplazid] 34 mg PO DAILY 04/14/19 Sulfamethoxazole/Trimethoprim 0.5 tab PO HS 05/21/19 [Bactrim Ds -] Abnormal Lab Results 05/21/19 05/21/19 17:45 17:45 RBC 3.36 L MCV 103.5 H MCH 35.0 H Chloride 110 H Anion Gap 6 L BUN 21.0 H Random Glucose 110 H Calcium 8.2 L Total Protein 6.3 L Albumin 3.2 L ASSESSMENT AND PLAN: 1. Fall/Pre-syncope - Etiology of recurrent falls is unclear. No acute pathology on noncontrast head CT and on CXR. EKG shows NSR with no significant ST-T wave changes and new LBBB. Initial troponin is negative. Left shoulder xray shows a humerus fracture from last month. Macrocytosis suggests surreptitious alcohol use - will get blood alcohol level and urine toxicology. Will get ECHO, leg doppler and TFT to evaluate leg edema, carotid doppler, consult neurology and monitor on telemetry. Patient uses a cane - consult PT. If ECHO is negative, will switch from Nifedipine to another agent since it may cause leg edema. Continue comprehensive care of all her comorbid conditions. 2. Hypoalbuminemia - Possibly due to combined effects of malnutrition and inflammation associated with comorbid chronic conditions. Will ensure adequate dietary protein intake and also consult casino attendant. 3. Hypertension - Restart suitable outpatient antihypertensive drugs when clinically appropriate. Revise regimen to ensure [id number] excellent BP control and funeral prearrangement counselor patient on the injurious effects of uncontrolled hypertension. Nonpharmacologic measures to control hypertension like weight loss , salt restriction and exercise discussed. Importance of adherence to treatment regimen and attainment of normotension emphasized. 4. DVT prophylaxis - Lovenox 40 mg SQ q 24 hours. 5. Advance directives - Full code
--- NOTE | 2019-05-21 21:47 | HP ---
CHIEF COMPLAINT: PCP: Dr. Medellin Neurology: Dr. Conde Ortho: Dr. Mclean HISTORY OF PRESENT ILLNESS: Patient is a 74 year old female with PMH of HTN, HLD, hypothyroidism, Parkinson' s Disease who presents from [facility] s/p unwitnessed fall this afternoon. Pt states that she was walking to her room this afternoon when she hit a column and fell face-forward. She states that she hit the left side of her face on the ground but denies any LOC. Pt was able to pull herself up using the wall, but also hit the left side of her body against the wall while doing so. She then was able to ambulate back to her room to rest. Pt denies any pre- syncopal symptoms: no dizziness, lightheadedness, chest pain, palpitations, or SOB preceding her fall. She denies a feeling of "unbalance" prior to the fall and believes either the floor was wet or running into the column caused her fall. Pt reports she did feel lightheaded this morning but it lasted about an hour and then improved on its own. She denies any history of lightheaded or dizziness and attributes her symptoms this morning to being hungry. At this time , pt is asymptomatic other than mild pain in her L shoulder. Of note, she was in the ED last month for a mechanical fall. Workup at that time was unremarkable except for a L shoulder XR that revealed a proximal humerus fracture with greater tuberosity avulsion. Pt was placed in an orthoglass splint and is following up with orthopedics for further management. She was recently diagnosed with Parkinson Disease in Aug 2018 and follows up with Dr. Conde. She has a BL resting tremor and steady shuffling gait at baseline. Pt denies any recent illnesses and denies any changes in her medications/she is compliant with all meds. ER course was notable for: (1) CT head: no acute intracranial pathology (2) EKG: NSR, with new LBBB Recent Travel: denies PAST MEDICAL HISTORY: HTN HLD Hypothyroidism Parkinson's Disease PAST SURGICAL HISTORY: Hysterectomy Social History: Smoking: denies Alcohol: denies Drugs: denies Family History: Mother: DM Father: CAD Sistter: Breast CA Brother: DM Allergies codeine Allergy (Verified 05/21/19 16:31) Penicillins Allergy (Verified 05/21/19 16:31) HOME MEDICATIONS: Home Medications Medication Instructions Recorded Atorvastatin Ca [Lipitor] 10 mg PO HS 08/29/18 Levothyroxine Sodium [Levoxyl] 88 mcg PO DAILY 08/29/18 Metoprolol Succinate 25 mg PO DAILY 08/29/18 Divalproex [Depakote -] 500 mg PO HS tablet.ec 09/02/18 Melatonin 10 mg PO HS PRN tab 09/02/18 Azelastine HCl 137 mcg NS BID 04/14/19 Escitalopram Oxalate [Lexapro -] 10 mg PO DAILY 04/14/19 Inositol 650 mg PO BID 04/14/19 Naproxen 220 mg PO BID 04/14/19 Nifedipine [Procardia Xl] 30 mg PO DAILY 04/14/19 Pimavanserin Tartrate [Nuplazid] 34 mg PO DAILY 04/14/19 Sulfamethoxazole/Trimethoprim 0.5 tab PO HS 05/21/19 [Bactrim Ds -] REVIEW OF SYSTEMS CONSTITUTIONAL: Absent: fever, chills, diaphoresis, generalized weakness, malaise, loss of appetite, weight change HEENT: Absent: rhinorrhea, nasal congestion, throat pain, throat swelling, difficulty swallowing, mouth swelling, ear pain, eye pain, visual changes CARDIOVASCULAR: Absent: chest pain, syncope, palpitations, irregular heart rate, lightheadedness , peripheral edema RESPIRATORY: Absent: cough, shortness of breath, dyspnea with exertion, orthopnea, wheezing, stridor, hemoptysis GASTROINTESTINAL: Absent: abdominal pain, abdominal distension, nausea, vomiting, diarrhea, constipation, melena, hematochezia GENITOURINARY: Absent: dysuria, frequency, urgency, hesitancy, hematuria, flank pain, genital pain MUSCULOSKELETAL: mild shoulder pain (old) Absent: myalgia, arthralgia, joint swelling, back pain, neck pain SKIN: Absent: rash, itching, pallor HEMATOLOGIC/IMMUNOLOGIC: Absent: easy bleeding, easy bruising, lymphadenopathy, frequent infections ENDOCRINE: Absent: unexplained weight gain, unexplained weight loss, heat intolerance, cold intolerance NEUROLOGIC: unsteady gait, tremors (baseline) Absent: headache, focal weakness or paresthesias, dizziness, seizure, mental status changes, bladder or bowel incontinence PSYCHIATRIC: Absent: anxiety, depression, suicidal or homicidal ideation, hallucinations. PHYSICAL EXAMINATION Vital Signs - 24 hr 05/21/19 05/21/19 16:32 21:00 Temperature 98.5 F Pulse Rate 71 Respiratory 24 H Rate Blood Pressure 146/69 O2 Sat by Pulse 95 95 Oximetry (%) GENERAL: Awake, alert, and fully oriented, in no acute distress. HEAD: Normal with no signs of trauma. EYES: Pupils equal, round and reactive to light, extraocular movements intact, sclera anicteric, conjunctiva clear. No lid lag. EARS, NOSE, THROAT: Ears normal, nares patent, oropharynx clear without exudates. Moist mucous membranes. NECK: Normal range of motion, supple without lymphadenopathy, JVD, or masses. LUNGS: Breath sounds equal, clear to auscultation bilaterally. No wheezes, and no crackles. No accessory muscle use. HEART: Regular rate and rhythm, normal S1 and S2 without murmur, rub or gallop. ABDOMEN: Soft, nontender, not distended, normoactive bowel sounds, no guarding, no rebound, no masses. No hepatomegaly or splenomegaly. MUSCULOSKELETAL: Normal range of motion at all joints. No bony deformities or tenderness. No CVA tenderness. UPPER EXTREMITIES: 2+ pulses, warm, well-perfused. No cyanosis. No clubbing. No peripheral edema. LOWER EXTREMITIES: 2+ pulses, warm, well-perfused. No calf tenderness. 2+ pitting edema, warm, mildly erythematous BL. NEUROLOGICAL: Cranial nerves II-XII intact. Normal speech. Shuffling gait, walks with cane. Mild resting tremor BL (baseline). PSYCHIATRIC: Cooperative. Good eye contact. Appropriate mood and affect. SKIN: Warm, dry, normal turgor, no rashes or lesions noted, normal capillary refill. Dry scaly skin BL LE. Laboratory Results - last 24 hr CBC, BMP 05/21/19 17:45 05/21/19 17:45 Urine Test Results Urine Color Yellow Urine Appearance Clear Urine pH 7.5 (5.0-8.0) Ur Specific [place] 1.015 (1.010-1.035) Urine Protein Negative (NEGATIVE) Urine Glucose (UA) Negative (NEGATIVE) Urine Ketones Trace (NEGATIVE) Urine Blood Trace-lysed (NEGATIVE) Urine Nitrite Negative (NEGATIVE) Urine Bilirubin Negative (NEGATIVE) Ur Leukocyte Esterase Trace (NEGATIVE) ASSESSMENT/PLAN: Patient is a 74 year old female with PMH of HTN, HLD, hypothyroidism, Parkinson' s Disease who presents from [facility] s/p unwitnessed fall this afternoon. #Fall 2/2 mechanical vs pre-syncope vs orthostatics Likely mechanical, given pt's hx of PD, mechanical falls in past, and increasingly unsteady, shuffling gait. Pt denies any pre-syncopal sx, but because fall was unwitnessed, cannot r/o. Orthostatics negative BP supine: 139/67 --> standing 144/69 New LBBB on EKG, possibly arrhythmia related F/u echo in am and monitor on tele F/u thyroid function Consulting neuro for further assessment given pt's worsening gait & multiple recent falls. Hold off carotid US, f/u their recommendations. PT evaluation and discuss possible rehab upon dispo -- patient ambulates with cane #BL LE edema (2+ pitting) New, progressive over the past 2-3 months. Noted on exam at pt's last hospital visit 04/2019. Most likely chronic 2/2 decreased ambulation. Pt denies hx of CHF or sx of SOB, chest pain, orthopnea but will f/u echo for cardiac cause F/u duplex to r/o DVT Possibly 2/2 med side effect from nifedipine. Pending results of echo, will consider switching pt off nifedipine #Macrocytosis Suggestive of surreptitious alcohol use (pt denies) F/u utox and blood alcohol level #HTN Cont home meds: metoprolol succinate 25 mg faily, nifedipine 30mg daily #HLD Cont home meds: lipitor 10mg HS #Hypothyroidism Cont home meds: levothyroxine 88mcg daily #Parkinson Disease Cont home meds: nuplazid 34mg daily, depakote 500mg HS #DVT ppx Heparin SQ #Dispo Monitor on tele Visit type - Emergency Visit Emergency Visit: Yes ED Registration Date: 05/21/19 Care time: The patient presented to the Emergency Department on the above date and was hospitalized for further evaluation of their emergent condition. - New Patient This patient is new to me today: Yes Date on this admission: 05/22/19 - Critical Care Critical Care patient: No ATTENDING PHYSICIAN STATEMENT I saw and evaluated the patient. I reviewed the resident's note and discussed the case with the resident. I agree with the resident's findings and plan as documented. SUBJECTIVE: OBJECTIVE: ASSESSMENT AND PLAN:
[2019-05-22] MEDS ORDERED: HEPARIN NA (PORCINE) 5,000 UNITS/ML 1ML VIAL ONE (02:19)
[2019-05-22] MEDS: HEPARIN NA (PORCINE) 5,000 UNITS/ML 1ML VIAL SQ SCH ×3 (02:53→18:46)
[2019-05-22] MEDS ORDERED: ESCITALOPRAM OXALATE 10 MG TABLET (FP) PO SCH (07:00)
[2019-05-22] MEDS: LEVOTHYROXINE NA 88 MCG TABLET (FP) PO SCH (07:12)
[2019-05-22 07:29] LABS: ALBUMIN 3.3 g/dl (3.4-5.0); BILIRUBIN,TOTAL 0.5 mg/dL (0.2-1); BLOOD UREA NITROGEN 14.7 mg/dL (7-18); CALCIUM 8.4 mg/dL (8.5-10.1); CREATININE 0.5 mg/dL (0.55-1.3); POTASSIUM 3.8 mmol/L (3.5-5.1); TOT PROT 6.6 g/dl (6.4-8.2)
[2019-05-22 07:31] LABS: BASO % 0.6 % (0-2.0); EOS % 1.8 % (0-4.5); HEMATOCRIT 35.7 % (32.4-45.2); HEMOGLOBIN 12.2 GM/dL (10.7-15.3); LYMPH % 39.9 % (8-40); MCH 35.1 pg (25.7-33.7); MCHC 34.1 g/dl (32.0-36.0); MEAN CELL VOLUME 102.9 fl (80-96); MEAN PLT VOLUME 8.8 fl (7.5-11.1); NEUT % 50.7 % (42.8-82.8); PLATELET COUNT 139 K/MM3 (134-434); RBC 3.47 M/mm3 (3.60-5.2); RDW 14.6 % (11.6-15.6); WHITE BLOOD COUNT 7.5 K/mm3 (4.0-10.0)
[2019-05-22] MEDS: NIFEdipine E.R. 30 MG TABLET (FP) PO SCH (11:00)
[2019-05-22] MEDS: metoPROLOL SUCCINATE 25 MG TAB.SR.24H (FP) PO SCH (11:00)
[2019-05-22] MEDS: ESCITALOPRAM OXALATE 10 MG TABLET (FP) PO SCH (11:00)
--- NOTE | 2019-05-22 11:11 | EKG ---
Test Reason : Blood Pressure : / mmHG Vent. Rate : 065 BPM Atrial Rate : 065 BPM P-R Int : 198 ms QRS Dur : 124 ms QT Int : 476 ms P-R-T Axes : 063 007 088 degrees QTc Int : 495 ms POOR DATA QUALITY, INTERPRETATION MAY BE ADVERSELY AFFECTED NORMAL SINUS RHYTHM LEFT BUNDLE BRANCH BLOCK ABNORMAL ECG WHEN COMPARED WITH ECG OF 14-APR-2019 07:51, LEFT BUNDLE BRANCH BLOCK IS NOW PRESENT Confirmed by KEELEY CALLE MD ([id number]) on 05/22/2019 11:10:45 AM Referred By: Confirmed By:KEELEY CALLE MD
--- NOTE | 2019-05-22 16:27 | EKG ---
Test Reason : Blood Pressure : / mmHG Vent. Rate : 062 BPM Atrial Rate : 062 BPM P-R Int : 198 ms QRS Dur : 126 ms QT Int : 476 ms P-R-T Axes : 058 036 092 degrees QTc Int : 483 ms NORMAL SINUS RHYTHM LEFT BUNDLE BRANCH BLOCK ABNORMAL ECG WHEN COMPARED WITH ECG OF 21-MAY-2019 17:27, NO SIGNIFICANT CHANGE WAS FOUND Confirmed by KEELEY CALLE MD ([id number]) on 05/22/2019 4:27:11 PM Referred By: DANYELLE MODI Confirmed By:KEELEY CALLE MD
--- NOTE | 2019-05-22 17:09 | ECHO ---
Name: RACH DILLARD Exam:Adult Echocardiogram Study Date: 05/22/2019 09:45 AM Age: 74 yrs Reason For Study: CHF Height: 67 in Weight: 175 lb BSA: 1.9 m2 MMode/2D Measurements & Calculations IVSd: 1.00 cm Ao root diam: 3.1 cm LVIDd: 4.8 cm LA dimension: 2.8 cm LVIDs: 3.3 cm LVPWd: 0.97 cm EDV(Teich): 107.7 ml LVOT diam: 2.0 cm ESV(Teich): 45.4 ml LAV (MOD-bp): 46.6 ml Doppler Measurements & Calculations MV E max tc: 63.5 cm/sec Ao V2 max: 167.1 cm/sec MV A max tc: 113.5 cm/sec Ao max P.2 mmHg MV E/A: 0.56 AI P1/2t: 545.2 msec MV dec time: 0.32 sec ALEIDA(V,D): 1.8 cm2 AI max tc: 524.6 cm/sec LV V1 max P.5 mmHg AI max P.1 mmHg LV V1 max: 93.6 cm/sec AI dec slope: 281.8 cm/sec2 MR max tc: 537.5 cm/sec PA V2 max: 115.4 cm/sec MR max P.3 mmHg PA max P.3 mmHg PI Vmax: 87.6 cm/sec Procedure The study was technically limited with all images being suboptimal in quality. Left Ventricle The left ventricular size, thickness and function are normal. Ejection Fraction = 55-60%. Grade I raul stolic dysfunction, (abnormal relaxation pattern). Septal motion is consistent with conduction abnormality. Right Ventricle The right ventricle is normal in size and function. Atria Normal left and right atrial size and function. Mitral Valve The mitral valve is grossly normal. There is trace to mild mitral regurgitation. Tricuspid Valve The tricuspid valve is not well visualized. There is trace tricuspid regurgitation. There was insuffi cient TR detected to calculate RV systolic pressure. Aortic Valve The aortic valve is not well visualized. Mild to moderate aortic regurgitation. Pulmonic Valve The pulmonic valve is not well visualized. Great Vessels The aortic root is normal size. Pericardium/Pleura There is no pericardial effusion. Interpretation Summary There is no comparison study available. The right ventricle is normal in size and function. The left ventricular size, thickness and function are normal Mild to moderate aortic regurgitation. There is trace tricuspid regurgitation. There is trace to mild mitral regurgitation. Adolfo Solano MD 05/22/2019 05:08 PM
--- NOTE | 2019-05-22 18:26 | PN ---
Teaching Attending Note Name of Resident: Geovanni Andrea ATTENDING PHYSICIAN STATEMENT I saw and evaluated the patient. I reviewed the resident's note and discussed the case with the resident. I agree with the resident's findings and plan as documented. SUBJECTIVE: Patient has no complaints. OBJECTIVE: Vital Signs Period Temp Pulse Resp BP Sys/Hu Pulse Ox Last 24 Hr 97.2 F-98.4 F 60-68 16-18 118-144/57-78 94-99 HEART: S1S2, RRR LUNGS: Clear ABDOMEN: Soft, non-tender, non-distended, normal BS EXTREMITIES: 1+ edema Laboratory Results - last 24 hr 05/21/19 05/21/19 05/21/19 16:50 17:45 17:45 WBC RBC Hgb Hct MCV MCH MCHC RDW Plt Count MPV Absolute Neuts (auto) Neutrophils % Lymphocytes % Monocytes % Eosinophils % Basophils % Nucleated RBC % Sodium 144 Potassium 3.9 Chloride 110 H Carbon Dioxide 28 Anion Gap 6 L BUN 21.0 H Creatinine 0.6 Est GFR (CKD-EPI)AfAm 102.62 Est GFR (CKD-EPI)NonAf 88.54 Random Glucose 110 H Calcium 8.2 L Total Bilirubin 0.2 AST 17 ALT 15 Alkaline Phosphatase 96 Creatine Kinase 42 Troponin I < 0.02 Total Protein 6.3 L Albumin 3.2 L Vitamin B12 Serum Folate TSH 7.59 H Urine WBC (Auto) 6.0 Urine RBC (Auto) 3.9 Urine Casts (Auto) 0.3 U Epithel Cells (Auto) 1.0 Urine Bacteria (Auto) 5.6 05/22/19 05/22/19 06:37 06:37 WBC 7.5 RBC 3.47 L Hgb 12.2 Hct 35.7 MCV 102.9 H MCH 35.1 H MCHC 34.1 RDW 14.6 Plt Count 139 MPV 8.8 Absolute Neuts (auto) 3.8 Neutrophils % 50.7 Lymphocytes % 39.9 Monocytes % 7.0 Eosinophils % 1.8 Basophils % 0.6 Nucleated RBC % 0 Sodium 145 Potassium 3.8 Chloride 112 H Carbon Dioxide 26 Anion Gap 7 L BUN 14.7 Creatinine 0.5 L Est GFR (CKD-EPI)AfAm 108.96 Est GFR (CKD-EPI)NonAf 94.01 Random Glucose 103 Calcium 8.4 L Total Bilirubin 0.5 AST 18 ALT 15 Alkaline Phosphatase 102 Creatine Kinase Troponin I Total Protein 6.6 Albumin 3.3 L Vitamin B12 558 Serum Folate 22 H TSH Urine WBC (Auto) Urine RBC (Auto) Urine Casts (Auto) U Epithel Cells (Auto) Urine Bacteria (Auto) Current Medications Generic Name Dose Route Start Last Admin Trade Name Freq PRN Reason Stop Dose Admin Atorvastatin Calcium 10 mg 05/22/19 22:00 Lipitor - PO HS WANDA Divalproex Sodium 500 mg 05/22/19 22:00 Depakote - PO HS WANDA Escitalopram Oxalate 10 mg 05/22/19 07:00 05/22/19 11:00 Lexapro - PO 10 mg DAILY WANDA Administration Heparin Sodium (Porcine) 5,000 unit 05/22/19 02:00 05/22/19 10:30 Heparin - SQ 5,000 unit Q8H-IV WANDA Administration Levothyroxine Sodium 88 mcg 05/22/19 07:00 05/22/19 07:12 Synthroid - PO Not Given DAILY@0700 WANDA Metoprolol Succinate 25 mg 05/22/19 10:00 05/22/19 11:00 Toprol Xl - PO 25 mg DAILY WANDA Administration Nifedipine 30 mg 05/22/19 10:00 05/22/19 11:00 Procardia Xl - PO 30 mg DAILY WANDA Administration Non-Formulary Medication 34 mg 05/22/19 10:00 Pimavanserin Tartrate [Nuplazid] PO DAILY WANDA ASSESSMENT AND PLAN: This is a 74 year old woman with a history of HTN, hyperlipidemia, hypothyroidism, Parkinson's disease, migraine headaches who presented to the ED from [facility] after an unwitnessed fall. 1. s/p fall - No evidence of orthostasis - Continue telemetry monitoring - PT evaluation 2. New LBBB - Echo pending - Cardiology consult 3. Leg edema - Clinically no signs of CHF - Echo pending - Venous dopplers negative for DVT 4. HTN - Continue Procardia XL, Toprol XL 5. Hyperlipidemia - Continue Lipitor 6. Hypothyroidism - Continue Synthroid - Check TSH 7. Parkinson disease - Continue Nuplazid 8. History of migraine headache - Continue Depakote
--- NOTE | 2019-05-22 18:59 | PN ---
Physical Exam: SUBJECTIVE: Patient seen and examined at bedside this AM. No acute events. OBJECTIVE: Vital Signs Period Temp Pulse Resp BP Sys/Hu Pulse Ox Last 24 Hr 97.2 F-98.4 F 60-68 16-18 118-144/57-78 94-99 GENERAL: The patient is awake, alert, and fully oriented, in no acute distress. HEAD: Normal with no signs of trauma. NECK: Trachea midline, full range of motion, supple. LUNGS: Breath sounds equal, clear to auscultation bilaterally, no wheezes, no crackles, no accessory muscle use. rib hematoma s/p fall. HEART: Regular rate and rhythm, S1, S2 without murmur, rub or gallop. ABDOMEN: Soft, nontender, nondistended, normoactive bowel sounds, no guarding, no rebound. EXTREMITIES: 2+ pulses, warm, well-perfused, no edema. Hard hematoma left hip inferior on lateral side. NEUROLOGICAL: Cranial nerves II through XII grossly intact. Normal speech, gait not observed. no strength in Left shoulder and arm, 5/5 on other side, sensation b/ l intact, 4/5 b/l strength lower extremities weakness is chronic from parkinson disease. PSYCH: Normal mood, normal affect. SKIN: Warm, dry, normal turgor, no rashes or lesions noted Laboratory Results - last 24 hr 05/21/19 05/22/19 05/22/19 17:45 06:37 06:37 WBC 7.5 RBC 3.47 L Hgb 12.2 Hct 35.7 MCV 102.9 H MCH 35.1 H MCHC 34.1 RDW 14.6 Plt Count 139 MPV 8.8 Absolute Neuts (auto) 3.8 Neutrophils % 50.7 Lymphocytes % 39.9 Monocytes % 7.0 Eosinophils % 1.8 Basophils % 0.6 Nucleated RBC % 0 Sodium 144 145 Potassium 3.9 3.8 Chloride 110 H 112 H Carbon Dioxide 28 26 Anion Gap 6 L 7 L BUN 21.0 H 14.7 Creatinine 0.6 0.5 L Est GFR (CKD-EPI)AfAm 102.62 108.96 Est GFR (CKD-EPI)NonAf 88.54 94.01 Random Glucose 110 H 103 Calcium 8.2 L 8.4 L Total Bilirubin 0.2 0.5 AST 17 18 ALT 15 15 Alkaline Phosphatase 96 102 Total Protein 6.3 L 6.6 Albumin 3.2 L 3.3 L Vitamin B12 558 Serum Folate 22 H TSH 7.59 H Active Medications Generic Name Dose Route Start Last Admin Trade Name Chanda PRN Reason Stop Dose Admin Atorvastatin Calcium 10 mg 05/22/19 22:00 Lipitor - PO HS WANDA Divalproex Sodium 500 mg 05/22/19 22:00 Depakote - PO HS WANDA Escitalopram Oxalate 10 mg 05/22/19 07:00 05/22/19 11:00 Lexapro - PO 10 mg DAILY WANDA Administration Heparin Sodium (Porcine) 5,000 unit 05/22/19 02:00 05/22/19 18:46 Heparin - SQ 5,000 unit Q8H-IV WANDA Administration Levothyroxine Sodium 88 mcg 05/22/19 07:00 05/22/19 07:12 Synthroid - PO Not Given DAILY@0700 WANDA Metoprolol Succinate 25 mg 05/22/19 10:00 05/22/19 11:00 Toprol Xl - PO 25 mg DAILY WANDA Administration Nifedipine 30 mg 05/22/19 10:00 05/22/19 11:00 Procardia Xl - PO 30 mg DAILY WANDA Administration Non-Formulary Medication 34 mg 05/22/19 10:00 Pimavanserin Tartrate [Nuplazid] PO DAILY WANDA ASSESSMENT/PLAN: Patient is a 74 year old female with PMH of HTN, HLD, hypothyroidism, Parkinson' s Disease who presents from [facility] s/p unwitnessed fall this afternoon. #Fall 2/2 mechanical vs pre-syncope vs orthostatics Likely mechanical, given pt's hx of PD, mechanical falls in past, and increasingly unsteady, shuffling gait. Orthostatics negative New LBBB on EKG, possibly arrhythmia related - echo- showing normal EF 55-60%, grade I diastolic dysfunction, RV Nl, trace TR , trace -> mild MR, mild -> mod AR. - TSH 7.59 - Consulting neuro (Marian) for further assessment. - PT evaluation and discuss possible rehab upon dispo, patient ambulates with cane - XR of hip/pelvis and CXR for hematoma on left rib cage and left hip to assess for any hemothorax or fracture to rib or hip. - Pt had appt to with ortho (Dr. Mclean) but cancelled it due to being in hospital may consult them awaiting XR results. #BL LE edema (2+ pitting) - New, progressive over the past 2-3 months. Noted on exam at pt's last hospital visit 04/2019. Most likely chronic 2/2 decreased ambulation. - Pt denies hx of CHF or sx of SOB, chest pain, orthopnea - duplex negative for dvt. - Possibly 2/2 med side effect from nifedipine. Pending results of echo, will consider switching pt off nifedipine. #Macrocytosis Suggestive of surreptitious alcohol use (pt denies) F/u utox and blood alcohol level #HTN Cont home meds: metoprolol succinate 25 mg faily, nifedipine 30mg daily #HLD Cont home meds: lipitor 10mg HS #Hypothyroidism Cont home meds: levothyroxine 88mcg daily #Parkinson Disease Cont home meds: nuplazid 34mg daily, depakote 500mg HS #DVT ppx Heparin SQ #Dispo: Monitor on tele Visit type - Emergency Visit Emergency Visit: Yes ED Registration Date: 05/21/19 Care time: The patient presented to the Emergency Department on the above date and was hospitalized for further evaluation of their emergent condition. - New Patient This patient is new to me today: Yes Date on this admission: 05/22/19 - Critical Care Critical Care patient: No - Discharge Referral Referred to [facility] Med P.C.: No ATTENDING PHYSICIAN STATEMENT I saw and evaluated the patient. I reviewed the resident's note and discussed the case with the resident. I agree with the resident's findings and plan as documented. SUBJECTIVE: OBJECTIVE: ASSESSMENT AND PLAN:
[2019-05-22] MEDS: ATORVASTATIN CA 40 MG TABLET (FP) PO SCH (23:05)
[2019-05-22] MEDS: DIVALPROEX SODIUM 500 MG TABLET E.C. PO SCH (23:05)
[2019-05-23] MEDS: HEPARIN NA (PORCINE) 5,000 UNITS/ML 1ML VIAL SQ SCH ×3 (04:41→17:15)
[2019-05-23] MEDS: LEVOTHYROXINE NA 88 MCG TABLET (FP) PO SCH (06:07)
[2019-05-23 06:40] VITALS: BMI 30.7
[2019-05-23 06:45] LABS: BASO % 0.9 % (0-2.0); EOS % 1.4 % (0-4.5); HEMATOCRIT 37.8 % (32.4-45.2); HEMOGLOBIN 12.8 GM/dL (10.7-15.3); LYMPH % 46.5 % (8-40); MCHC 33.9 g/dl (32.0-36.0); MEAN CELL VOLUME 103.2 fl (80-96); MEAN PLT VOLUME 8.6 fl (7.5-11.1); MONO % 6.3 % (3.8-10.2); NEUT % 44.9 % (42.8-82.8); PLATELET COUNT 165 K/MM3 (134-434); RBC 3.67 M/mm3 (3.60-5.2); RDW 14.9 % (11.6-15.6); WHITE BLOOD COUNT 9.1 K/mm3 (4.0-10.0)
[2019-05-23 07:10] LABS: ALBUMIN 3.6 g/dl (3.4-5.0); BILIRUBIN,TOTAL 0.4 mg/dL (0.2-1); BLOOD UREA NITROGEN 19.1 mg/dL (7-18); CALCIUM 8.8 mg/dL (8.5-10.1); CREATININE 0.6 mg/dL (0.55-1.3); POTASSIUM 3.9 mmol/L (3.5-5.1); TOT PROT 7.2 g/dl (6.4-8.2)
[2019-05-23] MEDS: metoPROLOL SUCCINATE 25 MG TAB.SR.24H (FP) PO SCH (09:37)
[2019-05-23] MEDS: NIFEdipine E.R. 30 MG TABLET (FP) PO SCH (09:38)
[2019-05-23] MEDS: ESCITALOPRAM OXALATE 10 MG TABLET (FP) PO SCH (09:38)
--- NOTE | 2019-05-23 15:54 | PN ---
Teaching Attending Note Name of Resident: Geovanni Andrea ATTENDING PHYSICIAN STATEMENT I saw and evaluated the patient. I reviewed the resident's note and discussed the case with the resident. I agree with the resident's findings and plan as documented. SUBJECTIVE: No complaints. OBJECTIVE: Vital Signs Period Temp Pulse Resp BP Sys/Hu Pulse Ox Last 24 Hr 97.5 F-98.1 F 58-66 2-20 127-160/57-82 94-99 HEART: S1S2, RRR LUNGS: Clear ABDOMEN: Soft, non-tender, non-distended, normal BS EXTREMITIES: 1+ edema Laboratory Results - last 24 hr 05/23/19 05/23/19 06:11 06:11 WBC 9.1 RBC 3.67 Hgb 12.8 Hct 37.8 MCV 103.2 H MCH 35.0 H MCHC 33.9 RDW 14.9 Plt Count 165 MPV 8.6 Absolute Neuts (auto) 4.1 Neutrophils % 44.9 Lymphocytes % 46.5 H Monocytes % 6.3 Eosinophils % 1.4 Basophils % 0.9 Nucleated RBC % 0 Sodium 142 Potassium 3.9 Chloride 107 Carbon Dioxide 29 Anion Gap 7 L BUN 19.1 H Creatinine 0.6 Est GFR (CKD-EPI)AfAm 102.62 Est GFR (CKD-EPI)NonAf 88.54 Random Glucose 113 H Calcium 8.8 Total Bilirubin 0.4 AST 21 ALT 18 Alkaline Phosphatase 112 Total Protein 7.2 Albumin 3.6 Current Medications Generic Name Dose Route Start Last Admin Trade Name Freq PRN Reason Stop Dose Admin Atorvastatin Calcium 10 mg 05/22/19 22:00 05/22/19 23:05 Lipitor - PO 10 mg HS WANDA Administration Divalproex Sodium 500 mg 05/22/19 22:00 05/22/19 23:05 Depakote - PO 500 mg HS WANDA Administration Escitalopram Oxalate 10 mg 05/22/19 07:00 05/23/19 09:38 Lexapro - PO 10 mg DAILY WANDA Administration Heparin Sodium (Porcine) 5,000 unit 05/22/19 02:00 05/23/19 09:38 Heparin - SQ 5,000 unit Q8H-IV WANDA Administration Levothyroxine Sodium 88 mcg 05/22/19 07:00 05/23/19 06:07 Synthroid - PO 88 mcg DAILY@0700 WANDA Administration Metoprolol Succinate 25 mg 05/22/19 10:00 05/23/19 09:37 Toprol Xl - PO 25 mg DAILY WANDA Administration Nifedipine 30 mg 05/22/19 10:00 05/23/19 09:38 Procardia Xl - PO 30 mg DAILY WANDA Administration Non-Formulary Medication 34 mg 05/22/19 10:00 Pimavanserin Tartrate [Nuplazid] PO DAILY WANDA ASSESSMENT AND PLAN: This is a 74 year old woman with a history of HTN, hyperlipidemia, hypothyroidism, Parkinson's disease, migraine headaches who presented to the ED from [facility] after an unwitnessed fall. 1. s/p fall - No evidence of orthostasis, arrhythmias - Continue PT 2. New LBBB - Echo shows normal LV, normal RV, mild to moderate AR, trace TR, trace to mild MR, grade I diastolic dysfunction, septal motion consistent with conduction abnormality - Cardiology consult 3. Leg edema - Clinically no signs of CHF - Echo shows normal LV/RV function - Venous dopplers negative for DVT - TSH 7.59 - will increase Synthroid 4. HTN - Continue Procardia XL, Toprol XL 5. Hyperlipidemia - Continue Lipitor 6. Hypothyroidism - Increase Synthroid (TSH 7.59) 7. Parkinson disease - Continue Nuplazid 8. History of migraine headaches - Continue Depakote 9. Left humerus fracture, old - Maintain left arm in sling - Ortho follow-up
[2019-05-23 17:05] LABS: MAGNESIUM 2.3 mg/dL (1.8-2.4)
--- NOTE | 2019-05-23 17:19 | CON.NEURO ---
Consult - History of Present Illness History of Present Illness: NEUROLOGY covering for DR LÓPEZ 74 year old female with PMH of HTN, HLD, hypothyroidism, Parkinson's Disease who presents from [facility] s/p unwitnessed fall this afternoon. Pt states that she was walking to her room this afternoon when she hit a column and fell face-forward. She states that she hit the left side of her face on the ground but denies any LOC. Pt was able to pull herself up using the wall, but also hit the left side of her body against the wall while doing so. She then was able to ambulate back to her room to rest. Pt denies any pre-syncopal symptoms: no dizziness, lightheadedness, chest pain, palpitations, or SOB preceding her fall. She denies a feeling of "unbalance" prior to the fall and believes either the floor was wet or running into the column caused her fall. Pt reports she did feel lightheaded this morning but it lasted about an hour and then improved on its own. She denies any history of lightheaded or dizziness and attributes her symptoms this morning to being hungry. At this time , pt is asymptomatic other than mild pain in her L shoulder. Of note, she was in the ED last month for a mechanical fall. Workup at that time was unremarkable except for a L shoulder XR that revealed a proximal humerus fracture with greater tuberosity avulsion. Pt was placed in an orthoglass splint and is following up with orthopedics for further management. She was recently diagnosed with Parkinson Disease in Aug 2018 and follows up with Dr. López. has been on NUPLAZID as well for possible LBD / hallucinations. She has a BL resting tremor and steady shuffling gait at baseline. Pt denies any recent illnesses and denies any changes in her medications/she is compliant with all meds. 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 - Alcohol/Substance Use Hx Alcohol Use: No - Smoking History Smoking history: Never smoked Have you smoked in the past 12 months: No If you are a former smoker, when did you quit?: 20 years ago - Social History ADL: Support Services History of Recent Travel: No Home Medications - Allergies Allergies/Adverse Reactions: Allergies Allergy/AdvReac Type Severity Reaction Status Date / Time codeine Allergy Verified 05/21/19 16:31 Penicillins Allergy Verified 05/21/19 16:31 - Home Medications Home Medications: Ambulatory Orders Atorvastatin Ca [Lipitor] 10 mg PO DAILY 08/29/18 Levothyroxine Sodium [Levoxyl] 88 mcg PO DAILY 08/29/18 Metoprolol Succinate 25 mg PO DAILY 08/29/18 Azelastine HCl 137 mcg NS BID 04/14/19 Escitalopram Oxalate [Lexapro -] 10 mg PO DAILY 04/14/19 Naproxen 220 mg PO BID PRN 04/14/19 Nifedipine [Procardia Xl] 30 mg PO DAILY 04/14/19 Clotrimazole [Clotrimazole AF] 1 applic TP BID 05/22/19 Divalproex [Depakote -] 500 mg PO BID 05/22/19 Inositol 650 mg PO BID 05/22/19 Melatonin 10 mg PO HS 05/22/19 Pimavanserin Tartrate [Nuplazid] 34 mg PO DAILY 05/22/19 Sulfamethoxazole/Trimethoprim [Bactrim SS -] 0.5 tab PO HS 05/22/19 Physical Exam-Neuro Vital Signs: Vital Signs Temperature 98.1 F 05/23/19 14:00 Pulse Rate 64 05/23/19 14:00 Respiratory Rate 20 05/23/19 14:00 Blood Pressure 139/69 05/23/19 14:00 O2 Sat by Pulse Oximetry (%) 95 05/23/19 09:00 Labs: CBC, BMP 05/23/19 06:11 05/23/19 06:11 - Neuro Exam Level Of Consciousness: Yes: Alert (awake and conversive, EOMI, no facial, motor : + resting tremor and cogwheeling --mild, left shoulder splinted , moving distal LE , plantars down) Imaging - Results Cat Scan: Report Reviewed, Image Reviewed Problem List - Problems (1) Fall Code(s): W19.XXXA - UNSPECIFIED FALL, INITIAL ENCOUNTER Qualifiers: Encounter type: subsequent encounter Qualified Code(s): W19.XXXD - Unspecified fall, subsequent encounter (2) Parkinson disease Code(s): G20 - PARKINSON'S DISEASE (3) HTN (hypertension) Code(s): I10 - ESSENTIAL (PRIMARY) HYPERTENSION Assessment/Plan 74 year old female with PMH of HTN, HLD, hypothyroidism, Parkinson's Disease who presents from [facility] s/p unwitnessed fall this afternoon. Pt states that she was walking to her room this afternoon when she hit a column and fell face-forward. She states that she hit the left side of her face on the ground but denies any LOC. Pt was able to pull herself up using the wall, but also hit the left side of her body against the wall while doing so. She then was able to ambulate back to her room to rest. Pt denies any pre-syncopal symptoms: no dizziness, lightheadedness, chest pain, palpitations, or SOB preceding her fall. She denies a feeling of "unbalance" prior to the fall and believes either the floor was wet or running into the column caused her fall. Pt reports she did feel lightheaded this morning but it lasted about an hour and then improved on its own. She denies any history of lightheaded or dizziness and attributes her symptoms this morning to being hungry. At this time , pt is asymptomatic other than mild pain in her L shoulder. Of note, she was in the ED last month for a mechanical fall. Workup at that time was unremarkable except for a L shoulder XR that revealed a proximal humerus fracture with greater tuberosity avulsion. Pt was placed in an orthoglass splint and is following up with orthopedics for further management. She was recently diagnosed with Parkinson Disease in Aug 2018 and follows up with Dr. López. She has a BL resting tremor and steady shuffling gait at baseline. Pt denies any recent illnesses and denies any changes in her medications/she is compliant with all meds. AP: s/p fall , mechanical likely exacerbated by gait difficulty related to PD vs LBD ; may need adjustment to her PD regimen, but PD rx work better for tremor > gait; family unaware of PD RX , will consider add on SINEMET, but this could be done as outpt and added on primary NEUROLOGIST Stephie, citalopram on hold cardiology to follow up new LBBB ortho to follow L shoulder DR BURKETT
--- NOTE | 2019-05-23 19:00 | PN ---
Physical Exam: SUBJECTIVE: Patient seen and examined at bedside no acute events. OBJECTIVE: Vital Signs Period Temp Pulse Resp BP Sys/Hu Pulse Ox Last 24 Hr 97.5 F-98.1 F 58-65 2-20 133-160/69-82 94-95 GENERAL: The patient is awake, alert, and fully oriented, in no acute distress. HEAD: Normal with no signs of trauma. NECK: supple. LUNGS: Breath sounds equal, clear to auscultation bilaterally, no wheezes, no crackles, no accessory muscle use. HEART: Regular rate and rhythm, S1, S2 without murmur, rub or gallop. ABDOMEN: Soft, nontender, nondistended, no guarding, no rebound. rib hematoma not appreciated on exam today. EXTREMITIES: 2+ pulses, warm, well-perfused, 1+ edema, tremor in upper extremities and head improved. Hip hematoma improving. NEUROLOGICAL: Cranial nerves II through XII grossly intact. Normal speech, gait not observed. PSYCH: Normal mood, normal affect. SKIN: Warm, dry, no rashes or lesions noted Laboratory Results - last 24 hr 05/23/19 05/23/19 06:11 06:11 WBC 9.1 RBC 3.67 Hgb 12.8 Hct 37.8 MCV 103.2 H MCH 35.0 H MCHC 33.9 RDW 14.9 Plt Count 165 MPV 8.6 Absolute Neuts (auto) 4.1 Neutrophils % 44.9 Lymphocytes % 46.5 H Monocytes % 6.3 Eosinophils % 1.4 Basophils % 0.9 Nucleated RBC % 0 Sodium 142 Potassium 3.9 Chloride 107 Carbon Dioxide 29 Anion Gap 7 L BUN 19.1 H Creatinine 0.6 Est GFR (CKD-EPI)AfAm 102.62 Est GFR (CKD-EPI)NonAf 88.54 Random Glucose 113 H Calcium 8.8 Magnesium 2.3 Total Bilirubin 0.4 AST 21 ALT 18 Alkaline Phosphatase 112 Total Protein 7.2 Albumin 3.6 Active Medications Generic Name Dose Route Start Last Admin Trade Name Freq PRN Reason Stop Dose Admin Atorvastatin Calcium 10 mg 05/22/19 22:00 05/22/19 23:05 Lipitor - PO 10 mg HS WANDA Administration Divalproex Sodium 500 mg 05/22/19 22:00 05/22/19 23:05 Depakote - PO 500 mg HS WANDA Administration Heparin Sodium (Porcine) 5,000 unit 05/22/19 02:00 05/23/19 17:15 Heparin - SQ 5,000 unit Q8H-IV WANDA Administration Levothyroxine Sodium 100 mcg 05/24/19 07:00 Synthroid - PO DAILY@0700 WANDA Metoprolol Succinate 25 mg 05/22/19 10:00 05/23/19 09:37 Toprol Xl - PO 25 mg DAILY WANDA Administration Nifedipine 30 mg 05/22/19 10:00 05/23/19 09:38 Procardia Xl - PO 30 mg DAILY WANDA Administration Non-Formulary Medication 34 mg 05/22/19 10:00 Pimavanserin Tartrate [Nuplazid] PO DAILY WANDA ASSESSMENT/PLAN: Patient is a 74 year old female with PMH of HTN, HLD, hypothyroidism, Parkinson' s Disease who presents from [facility] s/p unwitnessed fall this afternoon. #Fall 2/2 mechanical vs pre-syncope vs orthostatics Likely mechanical, given pt's hx of PD, mechanical falls in past, and increasingly unsteady, shuffling gait. Orthostatics negative New LBBB on EKG, possibly arrhythmia related, Dr. Looney consulted recs appreciated. - echo- showing normal EF 55-60%, grade I diastolic dysfunction, RV Nl, trace TR , trace -> mild MR, mild -> mod AR. - TSH 7.59 spoke w PCP and she is okay with this TSH level, no change for synthroid med. - Consulting neuro (Marian)- will consider add on SINEMET, but this could be done as outpt and added on primary NEUROLOGIST . - PT evaluation and discuss possible rehab upon dispo, patient ambulates with cane - XR of hip/pelvis, CXR negative for fractures, recommend rib series to assess better. - Dr. Mclean consulted for left shoulder chronic fracture. - Dr. Medellin ordered carotid US, mg, PO4, wanted cardio to eval pt before d/c, and I&O measured. #BL LE edema (2+ pitting) - New, progressive over the past 2-3 months. Noted on exam at pt's last hospital visit 04/2019. Most likely chronic 2/2 decreased ambulation. - Pt denies hx of CHF or sx of SOB, chest pain, orthopnea - duplex negative for dvt. - Possibly 2/2 med side effect from nifedipine. Pending results of echo, will consider switching pt off nifedipine. #Macrocytosis Suggestive of surreptitious alcohol use (pt denies) F/u utox and blood alcohol level #HTN Cont home meds: metoprolol succinate 25 mg faily, nifedipine 30mg daily #HLD Cont home meds: lipitor 10mg HS #Hypothyroidism Cont home meds: levothyroxine 88mcg daily #Parkinson Disease Cont home meds: nuplazid 34mg daily, depakote 500mg HS #DVT ppx Heparin SQ #Dispo: Monitor on tele Visit type - Emergency Visit Emergency Visit: Yes ED Registration Date: 05/21/19 Care time: The patient presented to the Emergency Department on the above date and was hospitalized for further evaluation of their emergent condition. - New Patient This patient is new to me today: No - Critical Care Critical Care patient: No - Discharge Referral Referred to [facility] Med P.C.: No ATTENDING PHYSICIAN STATEMENT I saw and evaluated the patient. I reviewed the resident's note and discussed the case with the resident. I agree with the resident's findings and plan as documented. SUBJECTIVE: OBJECTIVE: ASSESSMENT AND PLAN:
--- NOTE | 2019-05-23 20:26 | PN ---
Progress Note (short form) - Note Progress Note: patient was admitted under service without notification. I contacted team to notify patient is NOT to be discharged. Paper chart shows new LBBB as per ER resident note, cardiology consult requested by me for Dr Hamilton. Noted QTc prolongation, discontinued Lexparo and add phos and mag for lytes to correct to mag of >2 and replace phos as needed pending labs. Carotid US ordered due to syncope. I printed out documentation from my office visits with patient, old and recent, and have included imaging also from [facility] and recent ER visit with documentation of normal EKG. I discussed with PGY2 Maribell Denis that studies , bloodwork and consults must be followed carefully and patient not for discharge. She is very high risk for readmission and discharge at this time would be inapprorpiate and could result in repeat fall with hip fracture or head trauma to name most common risks. I would like for cardiology to make recommendations and patient be carefully monitored to new medications as she has extremely labile orthostasis related to Parkinsons Disease. I will also discuss with Dr Conde who will be back tomorrow and if possible I would like him to see patient in hospital. Repeat EKG, monitor Tele, fall precautions, strict ins/outs can use measured mercado in toilet or bedban. I am also ordering non formulary homeopathic IV medication that patient has used in past and has risk for side effects for calming effect as she should not be given lexapro or anti anxiety due to QTc prolongation risk. I informed nurse of orders.
[2019-05-23] MEDS ORDERED: [UNRECOGNIZED DRUG - OTHER] IV SCH (22:00)
[2019-05-23] MEDS ORDERED: PT OWN MED DRAWER 7, Y5N ONE (22:14)
[2019-05-23] MEDS: ATORVASTATIN CA 40 MG TABLET (FP) PO SCH (22:16)
[2019-05-23] MEDS: DIVALPROEX SODIUM 500 MG TABLET E.C. PO SCH (22:16)
[2019-05-24] MEDS: HEPARIN NA (PORCINE) 5,000 UNITS/ML 1ML VIAL SQ SCH ×3 (04:10→17:21)
[2019-05-24] MEDS ORDERED: LEVOTHYROXINE NA 100 MCG TABLET (FP) PO SCH (07:00)
[2019-05-24 07:56] LABS: BASO % 0.9 % (0-2.0); EOS % 2.5 % (0-4.5); HEMATOCRIT 34.5 % (32.4-45.2); HEMOGLOBIN 11.9 GM/dL (10.7-15.3); LYMPH % 44.9 % (8-40); MCH 35.4 pg (25.7-33.7); MCHC 34.4 g/dl (32.0-36.0); MEAN PLT VOLUME 8.9 fl (7.5-11.1); MONO % 6.5 % (3.8-10.2); NEUT % 45.2 % (42.8-82.8); PLATELET COUNT 137 K/MM3 (134-434); RBC 3.36 M/mm3 (3.60-5.2); RDW 14.2 % (11.6-15.6); WHITE BLOOD COUNT 7.4 K/mm3 (4.0-10.0)
[2019-05-24 08:26] LABS: ALBUMIN 3.1 g/dl (3.4-5.0); BILIRUBIN,TOTAL 0.4 mg/dL (0.2-1); BLOOD UREA NITROGEN 18.9 mg/dL (7-18); CALCIUM 8.7 mg/dL (8.5-10.1); CREATININE 0.5 mg/dL (0.55-1.3); MAGNESIUM 2.3 mg/dL (1.8-2.4); PHOSPHOROUS 3.2 mg/dL (2.5-4.9); POTASSIUM 3.9 mmol/L (3.5-5.1); TOT PROT 6.3 g/dl (6.4-8.2)
[2019-05-24] MEDS: NIFEdipine E.R. 30 MG TABLET (FP) PO SCH (09:56)
[2019-05-24] MEDS: metoPROLOL SUCCINATE 25 MG TAB.SR.24H (FP) PO SCH (09:56)
[2019-05-24] MEDS: PIMAVANSERIN TARTRATE 34 MG PO SCH (10:00)
--- NOTE | 2019-05-24 10:11 | EKG ---
Test Reason : Blood Pressure : / mmHG Vent. Rate : 064 BPM Atrial Rate : 064 BPM P-R Int : 184 ms QRS Dur : 130 ms QT Int : 472 ms P-R-T Axes : 057 023 077 degrees QTc Int : 486 ms POOR DATA QUALITY, INTERPRETATION MAY BE ADVERSELY AFFECTED NORMAL SINUS RHYTHM LEFT BUNDLE BRANCH BLOCK ABNORMAL ECG WHEN COMPARED WITH ECG OF 22-MAY-2019 15:20, NO SIGNIFICANT CHANGE WAS FOUND Confirmed by DWAIN MONTAÑO, MISSY ([id number]) on 05/24/2019 10:11:14 AM Referred By: Confirmed By:MISSY PRAKASH MD
--- NOTE | 2019-05-24 12:21 | EKG ---
Test Reason : Blood Pressure : / mmHG Vent. Rate : 067 BPM Atrial Rate : 067 BPM P-R Int : 192 ms QRS Dur : 084 ms QT Int : 422 ms P-R-T Axes : 060 046 081 degrees QTc Int : 445 ms NORMAL SINUS RHYTHM T WAVE ABNORMALITY, CONSIDER ANTEROLATERAL ISCHEMIA ABNORMAL ECG WHEN COMPARED WITH ECG OF 24-MAY-2019 06:48, LEFT BUNDLE BRANCH BLOCK IS NO LONGER PRESENT Confirmed by DWAIN MONTAÑO, MISSY ([id number]) on 05/24/2019 12:20:58 PM Referred By: Tara ALTAMIRANO Confirmed By:MISSY PRAKASH MD
--- NOTE | 2019-05-24 15:31 | CON.ORTH ---
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 - Alcohol/Substance Use Hx Alcohol Use: No - Smoking History Smoking history: Never smoked Have you smoked in the past 12 months: No If you are a former smoker, when did you quit?: 20 years ago - Social History ADL: Support Services History of Recent Travel: No Home Medications - Allergies Allergies/Adverse Reactions: Allergies Allergy/AdvReac Type Severity Reaction Status Date / Time codeine Allergy Verified 05/21/19 16:31 Penicillins Allergy Verified 05/21/19 16:31 - Home Medications Home Medications: Ambulatory Orders Atorvastatin Ca [Lipitor] 10 mg PO DAILY 08/29/18 Levothyroxine Sodium [Levoxyl] 88 mcg PO DAILY 08/29/18 Metoprolol Succinate 25 mg PO DAILY 08/29/18 Azelastine HCl 137 mcg NS BID 04/14/19 Escitalopram Oxalate [Lexapro -] 10 mg PO DAILY 04/14/19 Naproxen 220 mg PO BID PRN 04/14/19 Nifedipine [Procardia Xl] 30 mg PO DAILY 04/14/19 Clotrimazole [Clotrimazole AF] 1 applic TP BID 05/22/19 Divalproex [Depakote -] 500 mg PO BID 05/22/19 Inositol 650 mg PO BID 05/22/19 Melatonin 10 mg PO HS 05/22/19 Pimavanserin Tartrate [Nuplazid] 34 mg PO DAILY 05/22/19 Sulfamethoxazole/Trimethoprim [Bactrim SS -] 0.5 tab PO HS 05/22/19 Physical Exam for Ortho Vital Signs: Vital Signs Temperature 98.3 F 05/24/19 14:00 Pulse Rate 67 05/24/19 14:00 Respiratory Rate 20 05/24/19 14:00 Blood Pressure 128/58 L 05/24/19 14:00 O2 Sat by Pulse Oximetry (%) 94 L 05/24/19 09:00 Labs: CBC, BMP 05/24/19 06:51 05/24/19 06:51 - Upper Extremity Shoulder: Yes: Left, Limited ROM, Pain, Tenderness, Other (sling in place, nvi) Imaging - Results X-ray: Report Reviewed, Image Reviewed Assessment/Plan 74 year old female with PMH of HTN, HLD, hypothyroidism, Parkinson's Disease who presents from [facility] s/p unwitnessed fall this afternoon. Pt states that she was walking to her room this afternoon when she hit a column and fell face-forward. She states that she hit the left side of her face on the ground but denies any LOC. Pt was able to pull herself up using the wall, but also hit the left side of her body against the wall while doing so. She then was able to ambulate back to her room to rest. Pt denies any pre-syncopal symptoms: no dizziness, lightheadedness, chest pain, palpitations, or SOB preceding her fall. Pt is approx 5 weeks s/p left proximal humerus fx. She has been seeing Dr. Mclean for follow-up. a/p left proximal humerus fx- 5 weeks out healing well Continue with sling ok to remove for rom exercises gentle ROM activities pain control ok to d/c from ortho pov f/u as outpt in 10 days d/w Dr. Mclean
--- NOTE | 2019-05-24 16:00 | PN ---
Physical Exam: SUBJECTIVE: Patient seen and examined at bedside this AM. Pt c/o headache but has hx of migraines on BB for ppx. OBJECTIVE: Vital Signs Period Temp Pulse Resp BP Sys/Hu Pulse Ox Last 24 Hr 97.6 F-98.3 F 63-72 18-20 128-162/57-83 94-94 GENERAL: The patient is awake, alert, and fully oriented, in no acute distress. HEAD: Normal with no signs of trauma. NECK: supple. LUNGS: Breath sounds equal, clear to auscultation bilaterally, no wheezes, no crackles, no accessory muscle use. HEART: Regular rate and rhythm, S1, S2 without murmur, rub or gallop. ABDOMEN: Soft, nontender, nondistended, normoactive bowel sounds, no guarding, no rebound. EXTREMITIES: 2+ pulses, warm, well-perfused, trace edema, left hip hematoma still present, left rib cage hematoma resolved. NEUROLOGICAL: Cranial nerves II through XII grossly intact. Normal speech, gait not observed. PSYCH: Normal mood, normal affect. SKIN: Warm, dry, no rashes or lesions noted Laboratory Results - last 24 hr 05/23/19 05/24/19 05/24/19 06:11 06:51 06:51 WBC 7.4 RBC 3.36 L Hgb 11.9 Hct 34.5 MCV 103.0 H MCH 35.4 H MCHC 34.4 RDW 14.2 Plt Count 137 MPV 8.9 Absolute Neuts (auto) 3.3 Neutrophils % 45.2 Lymphocytes % 44.9 H Monocytes % 6.5 Eosinophils % 2.5 Basophils % 0.9 Nucleated RBC % 0 Sodium 142 143 Potassium 3.9 3.9 Chloride 107 107 Carbon Dioxide 29 29 Anion Gap 7 L 7 L BUN 19.1 H 18.9 H Creatinine 0.6 0.5 L Est GFR (CKD-EPI)AfAm 102.62 108.96 Est GFR (CKD-EPI)NonAf 88.54 94.01 Random Glucose 113 H 103 Calcium 8.8 8.7 Phosphorus 3.2 Magnesium 2.3 2.3 Total Bilirubin 0.4 0.4 AST 21 26 ALT 18 19 Alkaline Phosphatase 112 95 Total Protein 7.2 6.3 L Albumin 3.6 3.1 L Active Medications Generic Name Dose Route Start Last Admin Trade Name Freq PRN Reason Stop Dose Admin Atorvastatin Calcium 10 mg 08/21/19 22:00 Lipitor - PO HS WANDA Divalproex Sodium 500 mg 05/22/19 22:00 05/23/19 22:16 Depakote - PO 500 mg HS WANDA Administration Heparin Sodium (Porcine) 5,000 unit 05/22/19 02:00 05/24/19 09:56 Heparin - SQ 5,000 unit Q8H-IV WANDA Administration Levothyroxine Sodium 88 mcg 05/24/19 10:38 Synthroid - PO DAILY@0700 WANDA Metoprolol Succinate 25 mg 05/22/19 10:00 05/24/19 09:56 Toprol Xl - PO 25 mg DAILY WANDA Administration Nifedipine 30 mg 05/22/19 10:00 05/24/19 09:56 Procardia Xl - PO 30 mg DAILY WANDA Administration Non-Formulary Medication 34 mg 05/22/19 10:00 Pimavanserin Tartrate [Nuplazid] PO DAILY WANDA Patient's Own 1 each 05/24/19 22:00 Medication ( IV Calmvalera Comp) BID [facility] ASSESSMENT/PLAN: Patient is a 74 year old female with PMH of HTN, HLD, hypothyroidism, Parkinson' s Disease who presents from [facility] s/p unwitnessed fall this afternoon. #Fall 2/2 mechanical vs pre-syncope vs orthostatics Likely mechanical, given pt's hx of PD, mechanical falls in past, and increasingly unsteady, shuffling gait. Orthostatics negative EKG done showing no more LBBB, QT prolongation resolved, anterolateral ischemia. Dr. Looney consulted recs appreciated. - echo- showing normal EF 55-60%, grade I diastolic dysfunction, RV Nl, trace TR , trace -> mild MR, mild -> mod AR. - Consulting neuro Dr. Conde awaiting recs. - PT evaluation and discuss possible rehab upon dispo, patient ambulates with cane - Rib xray series showing no signs of fracture, CT to eval for nondisplaced hip fracture pending. - - pain control, c/w stling, f/u as o/p in [address] Mclean d/c from ortho perspective. #BL LE edema (2+ pitting) - New, progressive over the past 2-3 months. - Most likely chronic 2/2 decreased ambulation. - duplex negative for dvt. - Possibly 2/2 med side effect of nifedipine. #Macrocytosis - depakote could be cause - b12, folate normal #HTN Cont home meds: metoprolol succinate 25 mg faily, nifedipine 30mg daily #HLD Cont home meds: lipitor 10mg HS #Hypothyroidism Cont home meds: levothyroxine 88mcg daily #Parkinson Disease Cont home meds: nuplazid 34mg daily, depakote 500mg HS #DVT ppx Heparin SQ #Dispo: Monitor on tele Visit type - Emergency Visit Emergency Visit: Yes ED Registration Date: 05/21/19 Care time: The patient presented to the Emergency Department on the above date and was hospitalized for further evaluation of their emergent condition. - New Patient This patient is new to me today: No - Critical Care Critical Care patient: No - Discharge Referral Referred to [facility] Med [facility].C.: No ATTENDING PHYSICIAN STATEMENT I saw and evaluated the patient. I reviewed the resident's note and discussed the case with the resident. I agree with the resident's findings and plan as documented. SUBJECTIVE: OBJECTIVE: ASSESSMENT AND PLAN:
--- NOTE | 2019-05-24 17:34 | PN ---
Teaching Attending Note Name of Resident: Geovanni Andrea ATTENDING PHYSICIAN STATEMENT I saw and evaluated the patient. I reviewed the resident's note and discussed the case with the resident. I agree with the resident's findings and plan as documented. SUBJECTIVE: No fever or chills. No PAGE . painin LUE with movement. L hip pain. no SOB. OBJECTIVE: NAD, awake, alert, knows her age, and location , thinks it is 2018. MMM, no facial droop CV: RRR, no MRG Lungs: CTAB ABd: soft, NT, Nd , NL BS Ext : big L posterior hip bruise . TTP over Lateral hip . trace edema on legs MS: tenderness to palpation over L lower ribs at mid axillary line tenderness over L upper arm. sling in place . RP 2+. normal hand movement and nl sensation in hand resting tremor ASSESSMENT AND PLAN: 74 y/o lady with h/o Parkinson's disease, hypothyroidism, unsteady gait, HLP, Migraines PAEG, recent L humerus Fx, and other medical problems who presented with a fall. 1- Fall, questionable syncope: Most likely mechanical due to unsteady gait form Parkinson's. patient denies LOC, but she might be a reliable historian - PT eval. - tele monitoring. No arrhythmias - neg orthostatics - obtain CT of L hip to r/o non displaced Fx, not seen on xray - obtain L rib Fx. 2- LE edema: euvolemic. No signs of clinical heart failure despite diastolic dysfunction seen on Echo 3- New LBBB, resolved on repeat EKG. ST elevation in septal leads with upright T are part of the LBBB. now on repeat EKG no ST changes but TWI in septal leads is new compared to 04/21. No cp though, and trop neg - repeat trop - card eval pending 4- Prolonged QTC: ? due to LBBB. resolved with resolution of LBBB on EKG. - monitor on tele - card 5- h/o hypothyroidism: slightly elevated TSH. - cont home dose synthroid and repeat TSH as out pt 6- H/o recently diagnosed PArkinson's: not on Carbi/levo. - Continued neuro eval as out pt 7- HTN: cont meds 8- Migraines: cont [rophylactic BB 9- DVT PX : SQ heparin
--- NOTE | 2019-05-24 18:55 | CONSULT ---
Consult - text type - Consultation Consultation Note: NEUROLOGY PROGRESS: Dr. Fonseca's coverage note is greatly appreciated. Events reviewed and discussed with Dr. Solomon this AM. Discussed with Pt's son who notes resolution of hallucinations on Pimavanserin ( Nuplazid) and stable gait since last office visit. This 74 yo RH woman is well known to my services with HTN, HLD, hypothyroid. Now at [facility] living. Last seen in office consultation 02/16/19. Followed for Parkinson's Disease, OMS, Dysautonomia with orthostatic hypotension , PD psychosis, Migraine Headaches and Essential tremor. Last visit maintained on: Nuplazid 34 mg, Depakote ER 1000 mg HS, metoprolol ER 25 mg qd. Admitted after while ambulating independently to nurses station, hitting her left shoulder on a wall and falling on her left side sustaining large bruise to left thigh. Pt. denies prodromal symptoms. CT of head reviewed: Moderate diffuse atrophy with microvascular changes but no traumatic lesions. BP's stable (130/70) without orthostatic changes. EXAM: Left arm in sling NEURO: Recognizes me. [facility], May 2018. +Glabella, snout. Minimal sustention tremor and MIN Cogwheel rigidity. Normal strength and reflexes. Sl unsteady gait but no festination. IMP: 1. Mild-Mod B/L Cerebral dysfunction (OMS, Chronic) 2. Mild, stable Parkinsons 3. Dysautonomia 4. Syncope vs mechanical fall SUGGEST: Continue orthostatic BP's Continue Nuplazid 34 mg q AM when cleared by cardiology Continue depakote 1000 BID for migraine prophylaxis PT for Gait with WALKER. Check B12, RPR and TSH, T4 Neuro f/u for consideration of L-Dopa Rx if BP's remain stable. Thank you very much, Song Conde MD
--- NOTE | 2019-05-24 19:57 | CON.CARD ---
Consult Consult Specialty:: Cardiology Referred by:: Hospitalist Medicine Reason for Consultation:: Newly diagnosed LBBB - History of Present Illness Chief Complaint: Post fall History of Present Illness: Patient is a 74 year old woman with a PMH of Penicillin allergy, HTN, HLD, hypothyroid, and Parkinsons Disease, who presents from Assisted Living Facility to the ER after slip, mechanical fall and hitting her head on a wall. Patient notes she was feeling lightheaded at which time her blood pressure was checked and she was hypertensive. Has had bilateral leg swelling over the past month. She denies LOC, chest pain, shortness of breath, left shoulder pain, numbness, tingling, weakness, nausea, vomiting, diarrhea, bloody stool or dysuria. She is not on anticoagulation. 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 - Alcohol/Substance Use Hx Alcohol Use: No - Smoking History Smoking history: Never smoked Have you smoked in the past 12 months: No If you are a former smoker, when did you quit?: 20 years ago - Social History ADL: Support Services History of Recent Travel: No Home Medications - Allergies Allergies/Adverse Reactions: Allergies Allergy/AdvReac Type Severity Reaction Status Date / Time codeine Allergy Verified 05/21/19 16:31 Penicillins Allergy Verified 05/21/19 16:31 - Home Medications Home Medications: Ambulatory Orders Atorvastatin Ca [Lipitor] 10 mg PO DAILY 08/29/18 Levothyroxine Sodium [Levoxyl] 88 mcg PO DAILY 08/29/18 Metoprolol Succinate 25 mg PO DAILY 08/29/18 Azelastine HCl 137 mcg NS BID 04/14/19 Escitalopram Oxalate [Lexapro -] 10 mg PO DAILY 04/14/19 Naproxen 220 mg PO BID PRN 04/14/19 Nifedipine [Procardia Xl] 30 mg PO DAILY 04/14/19 Clotrimazole [Clotrimazole AF] 1 applic TP BID 05/22/19 Divalproex [Depakote -] 500 mg PO BID 05/22/19 Inositol 650 mg PO BID 05/22/19 Melatonin 10 mg PO HS 05/22/19 Pimavanserin Tartrate [Nuplazid] 34 mg PO DAILY 05/22/19 Sulfamethoxazole/Trimethoprim [Bactrim SS -] 0.5 tab PO HS 05/22/19 Review of Systems - Review of Systems Neurological: reports: Dizziness Vital Signs: Vital Signs Temperature 97.7 F 05/24/19 17:00 Pulse Rate 66 05/24/19 17:00 Respiratory Rate 20 05/24/19 17:00 Blood Pressure 132/72 05/24/19 17:00 O2 Sat by Pulse Oximetry (%) 94 L 05/24/19 09:00 Constitutional: Yes: No Distress, Calm Neck: Yes: Supple Respiratory: Yes: Regular, CTA Bilaterally Gastrointestinal: Yes: Normal Bowel Sounds, Soft Cardiovascular: Yes: Regular Rate and Rhythm JVD: No Carotid Bruit: No Heart Sounds: Yes: S1, S2 Edema: Yes Edema: LLE: Trace, RLE: Trace - Other Data Labs, Other Data: CBC, BMP 05/24/19 06:51 05/24/19 06:51 Imaging - Results Chest X-ray: Report Reviewed (NAD) Cat Scan: Report Reviewed (No acute changes) Ultrasound: Report Reviewed (No sig stenosis No DVT bilaterally) Problem List - Problems (1) Hypertensive heart disease Code(s): I11.9 - HYPERTENSIVE HEART DISEASE WITHOUT HEART FAILURE Qualifiers: Heart failure presence: without heart failure Qualified Code(s): I11.9 - Hypertensive heart disease without heart failure (2) Parkinson disease Code(s): G20 - PARKINSON'S DISEASE (3) Pre-syncope Code(s): R55 - SYNCOPE AND COLLAPSE (4) Fracture, humerus closed Code(s): S42.309A - UNSP FRACTURE OF SHAFT OF HUMERUS, UNSP ARM, INIT Qualifiers: Encounter type: initial encounter Humerus Location: proximal Fracture morphology: unspecified fracture morphology Laterality: left Qualified Code( s): S42.202A - Unspecified fracture of upper end of left humerus, initial encounter for closed fracture (5) HLD (hyperlipidemia) Code(s): E78.5 - HYPERLIPIDEMIA, UNSPECIFIED (6) Hypothyroid Code(s): E03.9 - HYPOTHYROIDISM, UNSPECIFIED Assessment/Plan 05/22/2019 Echo: Normal RV and LV size and fxn, mild-mod AR, tr-mild MR, tr TR 1. Hypertensive heart disease with intermittent LBBB 2. Parkinson's disease with gait instability possible dysautonomia post mechanical fall and recent L humerus Fx, denies syncope 3. Diastolic dysfunction, euvolemic 4. Hypothyroidism 5. Migraine PAGE P:1. Continue Lipitor 10 qd, Toprol 25 qd, Procardia XL 30 qd 2. Outpatient cardiac w/u including pharm stress as outpatient 3. PT, gait training 4. Thank you for consultative opportunity
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
[2019-05-24] MEDS: ATORVASTATIN CA 10 MG TABLET (FP) PO SCH (22:38)
[2019-05-24] MEDS: DIVALPROEX SODIUM 500 MG TABLET E.C. PO SCH (22:39)
[2019-05-24] MEDS: [UNRECOGNIZED DRUG - OTHER] IV SCH (22:48)
[2019-05-25] MEDS: HEPARIN NA (PORCINE) 5,000 UNITS/ML 1ML VIAL SQ SCH ×3 (03:30→18:35)
[2019-05-25] MEDS: LEVOTHYROXINE NA 88 MCG TABLET (FP) PO SCH (06:12)
[2019-05-25] MEDS ORDERED: PT OWN MED DRAWER 7, Y5N ONE ×3 (06:23→22:02)
--- NOTE | 2019-05-25 08:52 | PN ---
Progress Note (short form) - Note Progress Note: Ortho Pt see and examined s/p left proximal humerus fx Selected Entries 05/25/19 08:19 Temperature 98.0 F Pulse Rate 69 Respiratory 20 Rate Blood Pressure 147/72 sling intact, +ttp, good rom of elbow, wrist and hand nvi a/p continue sling gentle rom exercises pain control Orthopedically stable ok to d/c from ortho pov d/w Dr. Samuels
--- NOTE | 2019-05-25 09:16 | PN ---
Progress Note, Physician History of Present Illness: No further light-headedness or LE swelling, ambulated earlier, BP control improved. - Current Medication List Current Medications: Active Medications Atorvastatin Calcium (Lipitor -) 10 mg PO HS [facility] Last Admin: 05/24/19 22:38 Dose: 10 mg Divalproex Sodium (Depakote -) 500 mg PO HS [facility] Last Admin: 05/24/19 22:39 Dose: 500 mg Heparin Sodium (Porcine) (Heparin -) 5,000 unit SQ Q8H-IV [facility] Last Admin: 05/25/19 03:30 Dose: 5,000 unit Levothyroxine Sodium (Synthroid -) 88 mcg PO DAILY@0700 [facility] Last Admin: 05/25/19 06:12 Dose: 88 mcg Metoprolol Succinate (Toprol Xl -) 25 mg PO DAILY [facility] Last Admin: 05/24/19 09:56 Dose: 25 mg Nifedipine (Procardia Xl -) 30 mg PO DAILY [facility] Last Admin: 05/24/19 09:56 Dose: 30 mg Pimavanserin Tartrate [Nuplazid] 34 Mg Capsule 34 mg PO DAILY [facility] Last Admin: 05/24/19 10:00 Dose: Not Given Patient's Own Medication ( Calmvalera Comp) 1 each IV BID [facility] Last Admin: 05/24/19 22:48 Dose: 1 each - Objective Vital Signs: Vital Signs Temperature 98.0 F 05/25/19 08:19 Pulse Rate 69 05/25/19 08:19 Respiratory Rate 20 05/25/19 08:20 Blood Pressure 147/72 05/25/19 08:19 O2 Sat by Pulse Oximetry (%) 94 L 05/25/19 08:20 Constitutional: Yes: No Distress, Calm Neck: Yes: Supple Cardiovascular: Yes: Regular Rate and Rhythm Respiratory: Yes: Regular, CTA Bilaterally Gastrointestinal: Yes: Normal Bowel Sounds, Soft Edema: No Labs: CBC, BMP 05/24/19 06:51 05/24/19 06:51 - ....Imaging EKG: Report Reviewed (NSR intermittent LBBB) Problem List - Problems (1) Hypertensive heart disease Code(s): I11.9 - HYPERTENSIVE HEART DISEASE WITHOUT HEART FAILURE Qualifiers: Heart failure presence: without heart failure Qualified Code(s): I11.9 - Hypertensive heart disease without heart failure (2) Parkinson disease Code(s): G20 - PARKINSON'S DISEASE (3) Pre-syncope Code(s): R55 - SYNCOPE AND COLLAPSE (4) Fracture, humerus closed Code(s): S42.309A - UNSP FRACTURE OF SHAFT OF HUMERUS, UNSP ARM, INIT Qualifiers: Encounter type: initial encounter Humerus Location: proximal Fracture morphology: unspecified fracture morphology Laterality: left Qualified Code( s): S42.202A - Unspecified fracture of upper end of left humerus, initial encounter for closed fracture (5) HLD (hyperlipidemia) Code(s): E78.5 - HYPERLIPIDEMIA, UNSPECIFIED (6) Hypothyroid Code(s): E03.9 - HYPOTHYROIDISM, UNSPECIFIED Assessment/Plan 05/22/2019 Echo: Normal RV and LV size and fxn, mild-mod AR, tr-mild MR, tr TR 1. Hypertensive heart disease with intermittent LBBB 2. Parkinson's disease with gait instability possible dysautonomia post mechanical fall and recent L humerus Fx, denies syncope 3. Diastolic dysfunction, euvolemic 4. Hypothyroidism 5. Migraine PAGE P:1. Continue Lipitor 10 qd, Toprol 25 qd, Procardia XL 30 qd 2. Outpatient cardiac w/u including pharm stress as outpatient 3. PT, gait training 4. Thank you for consultative opportunity
[2019-05-25] MEDS: PIMAVANSERIN TARTRATE 34 MG PO SCH (09:38)
[2019-05-25] MEDS: NIFEdipine E.R. 30 MG TABLET (FP) PO SCH (09:38)
[2019-05-25] MEDS: metoPROLOL SUCCINATE 25 MG TAB.SR.24H (FP) PO SCH (09:38)
[2019-05-25] MEDS: [UNRECOGNIZED DRUG - OTHER] IV SCH (09:39)
--- NOTE | 2019-05-25 11:23 | PN ---
Teaching Attending Note Name of Resident: Geovanni Andrea ATTENDING PHYSICIAN STATEMENT I saw and evaluated the patient. I reviewed the resident's note and discussed the case with the resident. I agree with the resident's findings and plan as documented. SUBJECTIVE: No fever or chills. No PAGE . has no SOB . has pain every where in her body. events over night noted fro sun-downing OBJECTIVE: NAD, awake, alert, and cooperative MMM, no facial droop CV: RRR, no MRG, no JVD Lungs: CTAB ABd: soft, NT, Nd , NL BS Ext : big L posterior hip bruise stable compared to yesterday. no edema on legs or feet today. 2+ DP . nl foot movement and sensation tenderness over L upper arm. sling in place . RP 2+. normal hand movement and nl sensation in hand resting tremor ASSESSMENT AND PLAN: 74 y/o lady with h/o Parkinson's disease, hypothyroidism, unsteady gait, HLP, Migraines PAGE, recent L humerus Fx, and other medical problems who presented with a fall. 1- Fall, questionable syncope: Most likely mechanical due to unsteady gait form Parkinson's - PT eval. did 200 feet yesterday - tele monitoring. No arrhythmias - L hip with no fracture on CT scan - No rib Fx on Rib Xray 2- Diastolic dysfunction on echo: cont to be euvolemic. 3- Intermittent LBBB. - no signs of ACS - Appreciate Dr. Solano input. Out patient ischemic work up 4- Prolonged QTC: resolved. can use Nuplazid. contto hold lexapro 5- h/o hypothyroidism: slightly elevated TSH. - cont home dose synthroid and repeat TSH as out pt 6- H/o recently diagnosed PArkinson's: - Continued neuro eval as out pt . - RPR recommended by neur. will order. results can be followed up by PCP 7- HTN: cont meds 8- Migraines: cont prophylactic BB 9-Intermittent acute delirium, due to change in environment. - avoid sedatives. dc Calmvalera. - since she is back at her base line this am , I doubt that holding the low dose lexapro is contributing. - the sooner the patient gets back to a stable environment, the better she will do DVT PX : SQ heparin Patient is medically ready for discharge. No more inpatient w/u is indicated. D /w waste water worker regarding Rehab placement. [facility]ANK will be sent.
--- NOTE | 2019-05-25 16:10 | PN ---
Physical Exam: SUBJECTIVE: Patient seen and examined at bedside this AM. No acute events. OBJECTIVE: Vital Signs Period Temp Pulse Resp BP Sys/Hu Pulse Ox Last 24 Hr 97.5 F-98.1 F 66-70 20-20 116-147/60-72 94-94 GENERAL: The patient is awake, alert, and oriented, in no acute distress. HEAD: Normal with no signs of trauma. NECK: supple. LUNGS: Breath sounds equal, clear to auscultation bilaterally, no wheezes, no crackles, no accessory muscle use. HEART: Regular rate and rhythm, S1, S2 without murmur, rub or gallop. ABDOMEN: Soft, nontender, nondistended, no guarding, no rebound. EXTREMITIES: 2+ pulses, warm, well-perfused, no edema. left arm immobile in sling NEUROLOGICAL: sustenstion tremor noted on rt arm. PSYCH: Normal mood, normal affect. SKIN: Warm, dry, no rashes or lesions noted Laboratory Results - last 24 hr 05/24/19 19:25 Troponin I < 0.02 Active Medications Generic Name Dose Route Start Last Admin Trade Name Freq PRN Reason Stop Dose Admin Atorvastatin Calcium 10 mg 05/24/19 22:00 05/24/19 22:38 Lipitor - PO 10 mg HS WANDA Administration Divalproex Sodium 1,000 mg 05/25/19 22:00 Depakote *Er* - PO HS WANDA Heparin Sodium (Porcine) 5,000 unit 05/22/19 02:00 05/25/19 09:38 Heparin - SQ 5,000 unit Q8H-IV WANDA Administration Levothyroxine Sodium 88 mcg 05/24/19 10:38 05/25/19 06:12 Synthroid - PO 88 mcg DAILY@0700 WANDA Administration Metoprolol Succinate 25 mg 05/22/19 10:00 05/25/19 09:38 Toprol Xl - PO 25 mg DAILY WANDA Administration Nifedipine 30 mg 05/22/19 10:00 05/25/19 09:38 Procardia Xl - PO 30 mg DAILY WANDA Administration Non-Formulary Medication 1 each 05/25/19 11:30 Patient's Own Med PO DAILY WANDA ASSESSMENT/PLAN: Patient is a 74 year old female with PMH of HTN, HLD, hypothyroidism, Parkinson' s Disease who presents from [facility] s/p unwitnessed fall this afternoon. #Fall 2/2 mechanical vs pre-syncope vs orthostatics Likely mechanical, given pt's hx of PD, mechanical falls in past, and increasingly unsteady, shuffling gait. Orthostatics negative - echo- showing normal EF 55-60%, grade I diastolic dysfunction, RV Nl, trace TR , trace -> mild MR, mild -> mod AR. . - PT evaluation and discuss possible rehab upon dispo, patient ambulates with cane - Rib xray series showing no signs of fracture, CT to eval for nondisplaced hip fracture pending. - - pain control, c/w sling, f/u as o/p in [address] Mclean d/c from ortho perspective. Cardio (Dr. Solano)- recommended f/u pharmacologic stress test as o/p but to continue everything as planned. #BL LE edema (2+ pitting) - New, progressive over the past 2-3 months. - Most likely chronic 2/2 decreased ambulation. - duplex negative for dvt. - Possibly 2/2 med side effect of nifedipine. #Macrocytosis - depakote could be cause - b12, folate normal #HTN Cont home meds: metoprolol succinate 25 mg faily, nifedipine 30mg daily #HLD Cont home meds: lipitor 10mg HS #Hypothyroidism Cont home meds: levothyroxine 88mcg daily #Parkinson Disease Dr. wong- Cont home meds: nuplazid 34mg daily, depakote 500mg HS - recommends RPR - T4 as o/p. - B12, folate normal #DVT ppx Heparin SQ #Dispo: Monitor on tele, pending d/c tm to either rehab or assisted living. Visit type - Emergency Visit Emergency Visit: Yes ED Registration Date: 05/21/19 Care time: The patient presented to the Emergency Department on the above date and was hospitalized for further evaluation of their emergent condition. - New Patient This patient is new to me today: No - Critical Care Critical Care patient: No - Discharge Referral Referred to [facility] No ATTENDING PHYSICIAN STATEMENT I saw and evaluated the patient. I reviewed the resident's note and discussed the case with the resident. I agree with the resident's findings and plan as documented. SUBJECTIVE: OBJECTIVE: ASSESSMENT AND PLAN:
[2019-05-25] MEDS ORDERED: DIVALPROEX NA *ER* EXTEND REL 500 MG TABLET.SA (FP) PO SCH (22:00)
[2019-05-25] MEDS: ATORVASTATIN CA 10 MG TABLET (FP) PO SCH (22:09)
[2019-05-26] MEDS: HEPARIN NA (PORCINE) 5,000 UNITS/ML 1ML VIAL SQ SCH ×3 (03:19→17:37)
[2019-05-26] MEDS: LEVOTHYROXINE NA 88 MCG TABLET (FP) PO SCH (06:25)
[2019-05-26] MEDS: metoPROLOL SUCCINATE 25 MG TAB.SR.24H (FP) PO SCH (09:36)
[2019-05-26] MEDS: NIFEdipine E.R. 30 MG TABLET (FP) PO SCH (09:36)
--- NOTE | 2019-05-26 10:23 | PN ---
Progress Note, Physician History of Present Illness: No further light-headedness or LE swelling, eating breakfast by besdside, BP control improved. - Current Medication List Current Medications: Active Medications Atorvastatin Calcium (Lipitor -) 10 mg PO HS [facility] Last Admin: 05/25/19 22:09 Dose: 10 mg Divalproex Sodium (Depakote *Er* -) 1,000 mg PO HS [facility] Last Admin: 05/25/19 22:07 Dose: 1,000 mg Heparin Sodium (Porcine) (Heparin -) 5,000 unit SQ Q8H-IV [facility] Last Admin: 05/26/19 09:35 Dose: 5,000 unit Levothyroxine Sodium (Synthroid -) 88 mcg PO DAILY@0700 [facility] Last Admin: 05/26/19 06:25 Dose: 88 mcg Metoprolol Succinate (Toprol Xl -) 25 mg PO DAILY [facility] Last Admin: 05/26/19 09:36 Dose: 25 mg Nifedipine (Procardia Xl -) 30 mg PO DAILY [facility] Last Admin: 05/26/19 09:36 Dose: 30 mg Non-Formulary Medication (Patient's Own Med) 1 each PO DAILY [facility] Last Admin: 05/26/19 09:37 Dose: 1 each - Objective Vital Signs: Vital Signs Temperature 97.9 F 05/26/19 08:22 Pulse Rate 67 05/26/19 08:22 Respiratory Rate 18 05/26/19 08:45 Blood Pressure 154/73 05/26/19 08:22 O2 Sat by Pulse Oximetry (%) 93 L 05/26/19 08:45 Constitutional: Yes: No Distress, Calm Neck: Yes: Supple Cardiovascular: Yes: Regular Rate and Rhythm Respiratory: Yes: Regular, CTA Bilaterally Gastrointestinal: Yes: Normal Bowel Sounds, Soft Edema: No Labs: CBC, BMP 05/24/19 06:51 05/24/19 06:51 - ....Imaging EKG: Report Reviewed (Tele: NSR) Problem List - Problems (1) Hypertensive heart disease Code(s): I11.9 - HYPERTENSIVE HEART DISEASE WITHOUT HEART FAILURE Qualifiers: Heart failure presence: without heart failure Qualified Code(s): I11.9 - Hypertensive heart disease without heart failure (2) Parkinson disease Code(s): G20 - PARKINSON'S DISEASE (3) Pre-syncope Code(s): R55 - SYNCOPE AND COLLAPSE (4) Fracture, humerus closed Code(s): S42.309A - UNSP FRACTURE OF SHAFT OF HUMERUS, UNSP ARM, INIT Qualifiers: Encounter type: initial encounter Humerus Location: proximal Fracture morphology: unspecified fracture morphology Laterality: left Qualified Code( s): S42.202A - Unspecified fracture of upper end of left humerus, initial encounter for closed fracture (5) HLD (hyperlipidemia) Code(s): E78.5 - HYPERLIPIDEMIA, UNSPECIFIED (6) Hypothyroid Code(s): E03.9 - HYPOTHYROIDISM, UNSPECIFIED Assessment/Plan 05/22/2019 Echo: Normal RV and LV size and fxn, mild-mod AR, tr-mild MR, tr TR 1. Hypertensive heart disease with intermittent LBBB 2. Parkinson's disease with gait instability possible dysautonomia post mechanical fall and recent L humerus Fx, denies syncope 3. Diastolic dysfunction, euvolemic 4. Hypothyroidism 5. Migraine PAGE P:1. Continue Lipitor 10 qd, Toprol 25 qd, Procardia XL 30 qd 2. Outpatient cardiac w/u including pharm stress as outpatient 3. PT, gait training->SNF
--- NOTE | 2019-05-26 15:36 | PN ---
Teaching Attending Note Name of Resident: Geovanni Andrea ATTENDING PHYSICIAN STATEMENT I saw and evaluated the patient. I reviewed the resident's note and discussed the case with the resident. I agree with the resident's findings and plan as documented. SUBJECTIVE: No fever or chills. No PAGE . no pain . no SOB . slept well at night OBJECTIVE: NAD, awake, alert, and cooperative CV: RRR, no MRG, no JVD Lungs: CTAB ABd: soft, NT, Nd , NL BS Ext : big L posterior hip bruise stable. no edema on legs or feet today. 2+ DP . nl foot movement and sensation sling in place. DP 2+ resting tremor ASSESSMENT AND PLAN: 74 y/o lady with h/o Parkinson's disease, hypothyroidism, unsteady gait, HLP, Migraines PAGE, recent L humerus Fx, and other medical problems who presented with a fall. 1- Fall, questionable syncope - tele monitoring. No arrhythmias 2- Diastolic dysfunction on echo: cont to be euvolemic. 3- Intermittent LBBB. - no signs of ACS - Out patient ischemic work up 4- Prolonged QTC: resolved. can use Nuplazid. cont to hold lexapro 5- h/o hypothyroidism: slightly elevated TSH. - cont home dose synthroid and repeat TSH as out pt 6- H/o recently diagnosed PArkinson's: - Continued neuro eval as out pt . - RPR pending 7- HTN: cont meds 8- Migraines: cont prophylactic BB 9-Intermittent acute delirium,much improved DVT PX : SQ heparin Patient is medically ready for discharge.waiting for rehab placement if approved by insurance
[2019-05-26 15:59] VITALS: TEMP 98.2
[2019-05-26 16:42] VITALS: BP 149/77; PULSE 65
== END 2019-05-26 20:30 | disposition home health service (06) | DRG 57 ==
LOC: JER 16:12 → JERBED 19:56 → OBSVTOIN 22:25 → J4W 05-22 19:43
PROVIDERS: ADMIT Internal Medicine; ATTEND Internal Medicine
PROC: 2W3BXYZ Immobilization of Left Upper Arm using Other Device (ICD-10-PCS; principal; 2019-05-21)
DX: G20 Parkinson's disease (principal); E46 Unspecified protein-calorie malnutrition; R42 Dizziness and giddiness; I10 Essential (primary) hypertension; E03.9 Hypothyroidism, unspecified; S00.81XA Abrasion of other part of head, initial encounter; W01.198A Fall on same level from slipping, tripping and stumbling with subsequent striking against other object, initial encounter; Y93.01 Activity, walking, marching and hiking; Y92.128 Other place in nursing home as the place of occurrence of the external cause; Y99.8 Other external cause status; Z85.42 Personal history of malignant neoplasm of other parts of uterus; F32.9 Major depressive disorder, single episode, unspecified; G40.409 Other generalized epilepsy and epileptic syndromes, not intractable, without status epilepticus; Z87.891 Personal history of nicotine dependence; S49.82XA Other specified injuries of left shoulder and upper arm, initial encounter; Z88.0 Allergy status to penicillin; I44.7 Left bundle-branch block, unspecified; E88.09 Other disorders of plasma-protein metabolism, not elsewhere classified; D75.89 Other specified diseases of blood and blood-forming organs; G43.909 Migraine, unspecified, not intractable, without status migrainosus; G90.1 Familial dysautonomia [Riley-Day]; R41.0 Disorientation, unspecified; Z68.30 Body mass index [BMI] 30.0-30.9, adult
CPT/HCPCS: 36415; 70450-TC; 71045-TC-FY; 71111-TC-FY; 73030-TC-LT-FY; 73523-TC-FY; 73700-TC-RT; 80053; 81003; 82550; 82607; 82746; 83735; 84100; 84439; 84443; 84481; 84484; 85025; 86593; 87086; 93005; 93010; 93306-TC; 93880-TC; 93970-TC; 97116-GP; 97161-GP; 99285-25; G0378; J1644; J7030